=== PATIENT | female | born 1990 | race Caucasian/White ===

== ENCOUNTER 2016-10-04 08:29 | Inpatient (IN) | payer BC, OTHER ==
[2016-10-04 08:40] VITALS: TEMP 98.5
[2016-10-04 09:24] LABS: BASO # 0.01 K/mm3 (0.0-2.0); BASO % 0.2 % (0.0-3.0); EOS # 0.1 (0.0-0.7); GRAN # 3.66 (1.4-6.5); HEMOGLOBIN 11.3 gm/dL (12.0-16.0); LYMPH % 20.8 % (22.0-35.0); MEAN CELL VOLUME 88.6 fL (80.0-105.0); MEAN CORPUSCULAR HEMOGLOBIN 29.9 pg (25.0-35.0); MEAN CORPUSCULAR HGB CONC 33.7 g/dl (31.0-37.0); MEAN PLATELET VOLUME 10.1 fl (7.0-11.0); MONO # 0.2 (0.1-0.6); PLATELET COUNT 234 10^3/uL (120.0-450.0); RBC 3.78 10^6/uL (3.5-6.1); RED CELL DISTRIBUTION WIDTH 13.8 % (11.5-14.5)
--- NOTE | 2016-10-04 09:24 | ED PDOC ---
Arrival/HPI - General Chief Complaint: Seizure Time Seen by Provider: 10/04/16 08:42 Historian: Patient - History of Present Illness Narrative History of Present Illness (Text): 10/04/16 09:25 A 25 year old female, whose past medical history includes epilepsy (since 4 years old), presents to the emergency department complaining of headache s/p three episodes of seizures last night. Patient reports she is noncompliant with medications. States headache feels similar to previous headaches after seizure episode. Notes seizures became more frequent last year, about one episode every night, after being prescribed another medication. Prior to new medication, she states she wouldn't have seizures for years. Reports she had an episode 9 hours ago, which woke her up, causing her to fall off the bed, hitting leg and head. Patient's witnessed one seizure episode, which he states patient was awake for, lasted less than a minute and occurred about 5 hours ago. She notes some palpitations this morning, but denies any other complaints at this time. Medications: topamax Symptom Onset: Sudden Symptom Course: Unchanged Activities at Onset: Sleeping Context: Home Past Medical History - Provider Review Nursing Documentation Reviewed: Yes - Infectious Disease Hx of Infectious Diseases: None - Tetanus Immunization Tetanus Immunization: Unknown - Past Medical History Past Medical History: No Previous - Cardiac Hx Cardiac Disorders: No - Pulmonary Hx Respiratory Disorders: No - Neurological Hx Seizures: Yes Other/Comment: childhood epilepsy - HEENT Hx HEENT Disorder: No - Renal Hx Renal Disorder: No - Endocrine/Metabolic Hx Endocrine Disorders: No - Hematological/Oncological Hx Blood Disorders: No - Integumentary Hx Dermatological Disorder: No - Musculoskeletal/Rheumatological Hx Musculoskeletal Disorders: No - Gastrointestinal Hx Gastrointestinal Disorders: No - Genitourinary/Gynecological Hx Genitourinary Disorders: No - Psychiatric Hx Psychophysiologic Disorder: No Hx Substance Use: No - Past Surgical History Past Surgical History: No Previous - Anesthesia Hx Anesthesia: No Hx Anesthesia Reactions: No Hx Malignant Hyperthermia: No - Suicidal Assessment Feels Threatened In Home Enviroment: No Family/Social History - Physician Review Nursing Documentation Reviewed: Yes Family/Social History: No Known Family HX Smoking Status: Never Smoked Hx Alcohol Use: No Hx Substance Use: No Hx Substance Use Treatment: No Allergies/Home Meds Allergies/Adverse Reactions: Allergies No Known Allergies Allergy (Verified 10/04/16 08:40) Home Medications: Home Meds Medication Instructions Recorded Confirmed Topamax 100 mg PO BID 12/21/13 10/04/16 Review of Systems - Review of Systems Constitutional: Fatigue. absent: Fevers Eyes: absent: Vision Changes, Photophobia, Eye Pain ENT: absent: Hearing Changes, Sore Throat Respiratory: absent: SOB Cardiovascular: Palpitations. absent: Chest Pain, DAO, Orthopnea Gastrointestinal: absent: Abdominal Pain, Nausea, Vomiting Genitourinary Female: absent: Dysuria, Frequency Musculoskeletal: absent: Back Pain, Neck Pain Skin: absent: Rash Neurological: Headache, Seizure. absent: Gait Changes Endocrine: absent: Polyuria Hemo/Lymphatic: absent: Easy Bleeding Physical Exam - Physical Exam Narrative Physical Exam (Text): 10/04/16 09:24 Head: Mild pain on palpation of forehead but no bony deformity, no ecchymosis, no orbital tenderness. Normocephalic. Eyes: PERRL. EOMI. Conjunctivae are not pale. ENT: Mucous membranes are moist and intact. Oropharynx is clear and symmetric. No tongue laceration. No facial bony tenderness. No hemotympanum. Neck: Supple. Full ROM. No JVD. No lymphadenopathy. No midline tenderness. Cardiovascular: Regular rate. Regular rhythm. No murmurs, rubs, or gallops. Distal pulses are 2+ and symmetric. Pulmonary/Chest: No evidence of respiratory distress. Clear to auscultation bilaterally. No wheezing, rales or rhonchi. Nontender. Abdominal: Soft and non-distended. There is no tenderness. No rebound, guarding, or rigidity. No organomegaly. Good bowel sounds. Back: No CVA tenderness. No midline tenderness. Extremities: No edema. No cyanosis. No clubbing. Full range of motion in all extremities. No calf tenderness. Skin: Skin is warm and dry. No petechiae. No purpura. No lacerations or ecchymosis. Neurological: Alert, awake, and oriented to person, place, time, and situation. Normal speech. No facial droop. No pronator drift. Reflexes intact. No focal weakness. Cranial nerves intact. Psychiatric: Good eye contact. Normal interaction, affect, and behavior. Patient with "feeling like I might have a seizure again". Vital Signs Reviewed: Yes Vital Signs Temp Pulse Resp BP Pulse Ox 10/04/16 13:12 85 18 99/62 L 10/04/16 11:00 85 19 99/62 L 100 10/04/16 08:33 98.5 F 79 20 99/68 L 96 Temperature: Afebrile Blood Pressure: Hypotensive Pulse: Regular Respiratory Rate: Normal Appearance: Positive for: Well-Appearing, Non-Toxic, Comfortable Pain Distress: None Mental Status: Positive for: Alert and Oriented X 3 Finger Stick Blood Glucose: 105 Medical Decision Making ED Course and Treatment: 10/04/16 09:21 Impression: A 25 year old female with multiple seizures prior to arrival. She has prior history of seizures although several episodes in one day not typical for her. Not compliant with her medication.s Differential Diagnosis included but are not limited to: head injury r/o intracranial hemorrhage Plan: -- CT head -- labs -- Urinalysis -- Reassess and disposition Prior Visits: Notes and results from previous visits were reviewed. Patient last reported to the emergency department on 02/09/16 for evaluation of cough, nasal congestion and runny nose. Progress Notes: History supplemented by . Patient on initial exam is alert, oriented, with no focal motor or sensory deficits but states she still feels "off". She admits noncompliance with her Topamax. She did hit her head during first seizure today. On exam, there is tenderness to frontal scalp. Given head injury and multiple seizures, ct head ordered. 10/04/16 09:54 CT HEAD WITHOUT CONTRAST Creator : Bigg Wayne MD IMPRESSION: No intracranial mass, hemorrhage or evidence of acute infarct. Unremarkable examination 10/04/16 14:20 While in emergency department, patient has had persistent auras sensation as if going to have seizure, although none has occurred. I suspect etiology of current presentation associated with her medication noncompliance. Oral Ativan ordered for persistent "aura" sensation. Patient symptoms are not improved after PO Ativan. Due to multiple seizures prior to arrival and persistent sensation of auras, patient will be admitted to remote tele bed for neurological monitoring. I consulted deboning team leader neurologist Dr. Yu. Patient will be initiated on IV Keppra and oral Topamax. Admission accepted by hospitalist. With period of monitoring in ED, she has not had further seizures in ED, no arrhythmias noted. - Lab Interpretations Lab Results: 10/04/16 09:18 10/04/16 09:43 Lab Results 10/04/16 10:00: Alcohol, Quantitative < 10 10/04/16 09:43: Sodium 138, Potassium 4.4, Chloride 105, Carbon Dioxide 25, Anion Gap 12, BUN 13, Creatinine 0.6, Est GFR ( Amer) > 60, Est GFR (Non- Af Amer) > 60, Random Glucose 93, Calcium 8.9, Total Bilirubin 0.3, AST 22, ALT 25, Alkaline Phosphatase 64, Total Protein 7.1, Albumin 3.9, Globulin 3.2, Albumin/Globulin Ratio 1.2 10/04/16 09:18: Urine Color Yellow, Urine Appearance Clear, Urine pH 6.0, Ur Specific [place] 1.025, Urine Protein Negative, Urine Glucose (UA) Negative, Urine Ketones Negative, Urine Blood Negative, Urine Nitrate Positive H, Urine Bilirubin Negative, Urine Urobilinogen 0.2, Ur Leukocyte Esterase Negative, Urine RBC 0 - 2, Urine WBC Negative, Ur Epithelial Cells 1 - 3, Urine HCG, Qual Negative 10/04/16 09:18: WBC 5.0 D, RBC 3.78, Hgb 11.3 L, Hct 33.5 L, MCV 88.6, MCH 29.9 , MCHC 33.7, RDW 13.8, Plt Count 234, MPV 10.1, Gran % 74.0 H, Lymph % (Auto) 20.8 L, [place] % (Auto) 4.0, Eos % (Auto) 1.0 L, Baso % (Auto) 0.2, Gran # 3.66, Lymph # 1.0 L, [place] # 0.2, Eos # 0.1, Baso # 0.01 10/04/16 08:49: POC Glucose (mg/dL) 105 I have reviewed the lab results: Yes - RAD Interpretation Radiology Orders: 10/04/16 09:06 HEAD W/O CONTRAST [CT] Stat - EKG Interpretation EKG Interpretation (Text): 10/04/16 EKG at 13:33 normal sinus rhythm rate of [address] elevations Interpreted by ED Physician: Yes Type: 12 lead EKG - Medication Orders Current Medication Orders: Acetaminophen (Tylenol 325mg Tab) 650 mg PO Q6H PRN PRN Reason: Fever >100.4 F Levetiracetam 1,000 mg/ Sodium (Chloride) 110 mls @ 460 mls/hr IV Q12 REX Lorazepam (Ativan) 1 mg IVP Q3 PRN; Protocol PRN Reason: Anxiety Non-Formulary Medication (Topamax) 100 mg PO BID REX Ondansetron HCl (Zofran Inj) 4 mg IVP Q4H PRN PRN Reason: Nausea/Vomiting Discontinued Medications Levetiracetam 1,000 mg/ Sodium (Chloride) 110 mls @ 440 mls/hr IV ONCE ONE Stop: 10/04/16 12:27 Last Admin: 10/04/16 12:54 Dose: 440 mls/hr Lorazepam (Ativan) 1 mg PO ONCE ONE PRN Reason: Protocol Stop: 10/04/16 11:18 Last Admin: 10/04/16 11:27 Dose: 1 mg Topiramate (Topamax) 50 mg PO STAT STA PRN Reason: Protocol Stop: 10/04/16 12:13 Last Admin: 10/04/16 13:16 Dose: 50 mg - Scribe Statement The provider has reviewed the documentation as recorded by the Jac Fuentes Provider Scribe Attestation: All medical record entries made by the Jac were at my direction and personally dictated by me. I have reviewed the chart and agree that the record accurately reflects my personal performance of the history, physical exam, medical decision making, and the department course for this patient. I have also personally directed, reviewed, and agree with the discharge instructions and disposition. Disposition/Present on Arrival - Present on Arrival Any Indicators Present on Arrival: No History of DVT/PE: No History of Uncontrolled Diabetes: No Urinary Catheter: No History of Decub. Ulcer: No History Surgical Site Infection Following: None - Disposition Have Diagnosis and Disposition been Completed?: Yes Diagnosis: Seizures Disposition: HOSPITALIZED Disposition Time: 10:45 Patient Plan: Admission, Telemetry Condition: FAIR
[2016-10-04 09:26] LABS: URINE BILIRUBIN NEGATIVE (NEGATIVE); URINE BLOOD NEGATIVE (NEGATIVE); URINE GLUCOSE (UA) NEGATIVE (NEGATIVE); URINE LEUKOCYTE ESTERASE NEGATIVE Leu/uL (NEGATIVE); URINE NITRATE POSITIVE (NEGATIVE); URINE PROTEIN NEGATIVE mg/dL (<30 mg/dL); URINE UROBILINOGEN 0.2 E.U./dL (<1 E.U./dL)
[2016-10-04 09:37] LABS: HCG,QUALITATIVE URINE NEGATIVE (NEGATIVE); URINE APPEARANCE CLEAR (CLEAR); URINE COLOR YELLOW (YELLOW)
[2016-10-04 09:38] LABS: URINE RBC 0 - 2 /hpf (0-2); URINE WBC NEGATIVE /hpf (0-6)
--- NOTE | 2016-10-04 09:52 | CT ---
PROCEDURE: CT HEAD WITHOUT CONTRAST. HISTORY: head injury, 3 seizures today COMPARISON: None available. TECHNIQUE: Axial computed tomography images were obtained through the head/brain without intravenous contrast. Radiation dose: Total exam DLP = 725.84 mGy-cm. This CT exam was performed using one or more of the following dose reduction techniques: Automated exposure control, adjustment of the mA and/or kV according to patient size, and/or use of iterative reconstruction technique. FINDINGS: HEMORRHAGE: No intracranial hemorrhage. BRAIN: No mass effect or edema. No atrophy or chronic microvascular ischemic changes. VENTRICLES: Unremarkable. No hydrocephalus. CALVARIUM: Unremarkable. PARANASAL SINUSES: Unremarkable as visualized. No significant inflammatory changes. MASTOID AIR CELLS: Unremarkable as visualized. No inflammatory changes. OTHER FINDINGS: None. IMPRESSION: No intracranial mass, hemorrhage or evidence of acute infarct. Unremarkable examination
[2016-10-04 09:58] LABS: ALB/GLOB RATIO 1.2 (1.1-1.8); ALBUMIN 3.9 g/dL (3.0-4.8); ALT/SGPT 25 U/L (7-56); AST/SGOT 22 U/L (15-39); BLOOD UREA NITROGEN 13 mg/dL (7-21); CALCIUM 8.9 mg/dL (8.4-10.5); GFR AFRICAN-AMERICAN > 60; GFR NON-AFRICAN AMERICAN > 60
[2016-10-04] MEDS ORDERED: levETIRAcetam 1,000 MG in Sodium Chloride 0.9% 100 ML IV ONE (12:13)
[2016-10-04 13:18] VITALS: BMI 32.8
--- NOTE | 2016-10-04 15:07 | CP.PCM.HP ---
<SAMANTHA BRICENO - Last Filed: 10/04/16 16:00> History of Present Illness - History of Present Illness History of Present Illness: CC: Seizures HPI: Mrs. Hodges is a 25 year old female with a past medical history significant for epilepsy and migraines presented with seizures. Patient reports that she has had two seizures today. One, which was unwitnessed, woke her up from her sleep and she then fell out of bed and hit her head. Her other reported seizure was witnessed by her , who was bedside with patient, a few hours later. He states that it lasted about a minute and consisted of her "thrashing her arms and legs around until she stopped". He reports that he gave her no medication during or after the episode. Patient states that there was a period of confusion and "fogginess" afterwards before she slowly regained orientation which took about 30 minutes. She reports that she was diagnosed with epilepsy as a child and has been on anti-seizure medications her "entire life". She claims that she hadn't experienced seizure activity for "5-6 years" on only Topamax before she started to experience a significant increase in the number of seizures she was having. She went to her neurologist at the time, Dr. Moore in [facility], who started her on Lamictal around "2-3 months ago". Patient claims that this medication caused her to have an even more significant increase in the number of seizures she was experiencing. She eventually stopped taking this medication "about 1 month ago" with a slight decrease in seizure activity since then. Currently, she complains of a migraine and an "aura" but otherwise has no complaints. She denies fever, shortness of breath, chest pain, abdominal pain, N /V, diarrhea or edema of any extremity. Past Medical History: Epilepsy and Migraines Past Surgical History: None Family History: Mother-"Thyroid Problems" Social History: Denies tobacco use, alcohol use and illicit drug use at any point in her life Home Medications: Topamax and PRN Aleve (Migraines) Present on Admission - Present on Admission Any Indicators Present on Admission: No Review of Systems - Review of Systems Review of Systems: Please refer to HPI Past Patient History - Infectious Disease Hx of Infectious Diseases: None - Tetanus Immunizations Tetanus Immunization: Unknown - Past Medical History & Family History Past Medical History?: Yes - Past Social History Smoking Status: Never Smoked Alcohol: None Drugs: Denies Home Situation {Lives}: With Family - CARDIAC Hx Cardiac Disorders: No - PULMONARY Hx Respiratory Disorders: No - NEUROLOGICAL Hx Seizures: Yes Other/Comment: childhood epilepsy - HEENT Hx HEENT Problems: No - RENAL Hx Chronic Kidney Disease: No - ENDOCRINE/METABOLIC Hx Endocrine Disorders: No - HEMATOLOGICAL/ONCOLOGICAL Hx Blood Disorders: No - INTEGUMENTARY Hx Dermatological Problems: No - MUSCULOSKELETAL/RHEUMATOLOGICAL Hx Musculoskeletal Disorders: No - GASTROINTESTINAL Hx Gastrointestinal Disorders: No - GENITOURINARY/GYNECOLOGICAL Hx Genitourinary Disorders: No - PSYCHIATRIC Hx Psychophysiologic Disorder: No Hx Substance Use: No - SURGICAL HISTORY Hx Surgeries: No - ANESTHESIA Hx Anesthesia: No Hx Anesthesia Reactions: No Hx Malignant Hyperthermia: No Meds Allergies/Adverse Reactions: Allergies Allergy/AdvReac Type Severity Reaction Status Date / Time No Known Allergies Allergy Verified 10/04/16 08:40 Physical Exam - Constitutional Appears: No Acute Distress - Head Exam Head Exam: NORMAL INSPECTION, NORMOCEPHALIC - Eye Exam Eye Exam: EOMI, Normal appearance, PERRL Pupil Exam: NORMAL ACCOMODATION, PERRL - ENT Exam ENT Exam: Mucous Membranes Moist, Normal Exam - Neck Exam Neck exam: Positive for: Full Rom, Normal Inspection. Negative for: Lymphadenopathy - Respiratory Exam Respiratory Exam: Clear to Auscultation Bilateral, NORMAL BREATHING PATTERN. absent: Rales, Rhonchi, Wheezes, Respiratory Distress, Stridor - Cardiovascular Exam Cardiovascular Exam: REGULAR RHYTHM, RRR, +S1, +S2. absent: Bradycardia, Tachycardia, Systolic Murmur - GI/Abdominal Exam GI & Abdominal Exam: Normal Bowel Sounds, Soft. absent: Distended, Firm, Guarding, Hernia, Tenderness - Extremities Exam Extremities exam: Positive for: normal capillary refill, normal inspection, pedal pulses present. Negative for: calf tenderness, joint swelling, pedal edema - Back Exam Back exam: NORMAL INSPECTION. absent: CVA tenderness (L), CVA tenderness (R), paraspinal tenderness, tenderness, vertebral tenderness - Neurological Exam Neurological exam: Alert, Oriented x3 - Psychiatric Exam Psychiatric exam: Normal Affect, Normal Mood - Skin Skin Exam: Dry, Intact, Normal Color, Warm Results - Vital Signs Recent Vital Signs: Last Vital Signs Temp 98.5 F 10/04/16 08:33 Pulse 85 10/04/16 13:12 Resp 18 10/04/16 13:12 BP 99/62 L 10/04/16 13:12 Pulse Ox 100 10/04/16 11:00 - Labs Result Diagrams: 10/04/16 09:18 10/04/16 09:43 Assessment & Plan - Assessment and Plan (Free Text) Assessment: Mrs. Hodges is a 25 year old female with a past medical history significant for epilepsy and migraines presented with seizures. Plan: 1. History of Epilepsy with active seizures - consulted neurology, all recommendations appreciated - CT head negative for intracranial mass, hemorrhage or acute infarct - Topamax 50mg, Ativan 1mg and Keppra 1000mg given once in ED - start topamax 100mg BID and Keppra 1000mg Q12, per neurology - Ativan 1mg PRN - seizure, fall and aspiration precautions in place 2. Migraines - neurology following - tylenol and zofran PRN 3. GI/DVT Prophylaxis - Pepcid/scd's Patient seen and case discussed in detail with attending, Dr. Zelaya. - Date & Time Date: 10/04/16 Time: 13:00 Decision To Admit - . Bed Request Type: Remote Telemetry <Otilia Zelaya - Last Filed: 10/04/16 16:19> Results - Vital Signs Recent Vital Signs: Last Vital Signs Temp 98.5 F 10/04/16 08:33 Pulse 86 10/04/16 15:35 Resp 18 10/04/16 15:35 BP 112/72 10/04/16 15:35 Pulse Ox 96 10/04/16 15:35 - Labs Result Diagrams: 10/04/16 09:18 10/04/16 09:43 Attending/Attestation - Attestation I have personally seen and examined this patient.: Yes I have fully participated in the care of the patient.: Yes I have reviewed all pertinent clinical information: Yes Notes (Text): 10/04/16 16:17 attending note; Patient seen And examined with resident in ER. Patient's by the bedside. Patient is a 25-year-old female with a history of seizure disorder since childhood is admitted with recurrence seizures since last night. Currently patient is alert, awake. CT head is negative. Patient is only taking Topamax now. stopped Lamictal. Stopped Keppra. Started on IV Keppra. Continue by mouth Topamax. IV Ativan prn. Neurology evaluation requested. Patient needs close follow-up with neurologist as outpatient for medication adjustment. Patient is strongly advised not to drive. Upon discharge the patient will follow up with PMD of choice.
[2016-10-04 16:59] VITALS: BP 103/71; RESP 19; O2SAT 98
[2016-10-04] MEDS ORDERED: TOPAMAX 100 MG PO SCH (18:00)
[2016-10-04] MEDS: levETIRAcetam 1,000 MG in Sodium Chloride 0.9% 100 ML IV SCH (21:42)
[2016-10-05 06:27] VITALS: PULSE 66
[2016-10-05 07:52] LABS: BASO # 0.02 K/mm3 (0.0-2.0); BASO % 0.4 % (0.0-3.0); EOS # 0.1 (0.0-0.7); EOS % 1.7 % (1.5-5.0); GRAN % 65.2 % (50.0-68.0); HEMOGLOBIN 11.8 gm/dL (12.0-16.0); LYMPH # 1.2 (1.2-3.4); LYMPH % 25.8 % (22.0-35.0); MEAN CORPUSCULAR HEMOGLOBIN 29.4 pg (25.0-35.0); MEAN CORPUSCULAR HGB CONC 33.4 g/dl (31.0-37.0); MEAN PLATELET VOLUME 9.6 fl (7.0-11.0); MONO # 0.3 (0.1-0.6); MONO % 6.9 % (1.0-6.0); PLATELET COUNT 228 10^3/uL (120.0-450.0); RBC 4.01 10^6/uL (3.5-6.1); RED CELL DISTRIBUTION WIDTH 13.2 % (11.5-14.5); WHITE BLOOD COUNT 4.6 10^3/ul (4.5-11.0)
[2016-10-05 08:10] LABS: ALB/GLOB RATIO 1.3 (1.1-1.8); ALBUMIN 4.2 g/dL (3.0-4.8); ALT/SGPT 30 U/L (7-56); AST/SGOT 27 U/L (15-39); BLOOD UREA NITROGEN 12 mg/dL (7-21); CALCIUM 9.2 mg/dL (8.4-10.5); GFR AFRICAN-AMERICAN > 60; GFR NON-AFRICAN AMERICAN > 60
[2016-10-05] MEDS: levETIRAcetam 1,000 MG in Sodium Chloride 0.9% 100 ML IV SCH (10:57)
--- NOTE | 2016-10-05 18:59 | CP.PCM.DIS ---
Provider - Provider Date of Admission: 10/04/16 12:07 Attending physician: Otilia Zelaya MD Time Spent in preparation of Discharge (in minutes): 45 Diagnosis - Discharge Diagnosis (1) Seizure Status: Acute Priority: Medium Onset Date: ~10/04/16 Hospital Course - Lab Results Lab Results: Most Recent Lab Values WBC 4.6 10^3/ul (4.5-11.0) 10/05/16 07:30 RBC 4.01 10^6/uL (3.5-6.1) 10/05/16 07:30 Hgb 11.8 gm/dL (12.0-16.0) L 10/05/16 07:30 Hct 35.3 % (36.0-48.0) L 10/05/16 07:30 MCV 88.0 fL (80.0-105.0) 10/05/16 07:30 MCH 29.4 pg (25.0-35.0) 10/05/16 07:30 MCHC 33.4 g/dl (31.0-37.0) 10/05/16 07:30 RDW 13.2 % (11.5-14.5) 10/05/16 07:30 Plt Count 228 10^3/uL (120.0-450.0) 10/05/16 07:30 MPV 9.6 fl (7.0-11.0) 10/05/16 07:30 Gran % 65.2 % (50.0-68.0) 10/05/16 07:30 Lymph % (Auto) 25.8 % (22.0-35.0) 10/05/16 07:30 [place] % (Auto) 6.9 % (1.0-6.0) H 10/05/16 07:30 Eos % (Auto) 1.7 % (1.5-5.0) 10/05/16 07:30 Baso % (Auto) 0.4 % (0.0-3.0) 10/05/16 07:30 Gran # 3.00 (1.4-6.5) 10/05/16 07:30 Lymph # 1.2 (1.2-3.4) 10/05/16 07:30 [place] # 0.3 (0.1-0.6) 10/05/16 07:30 Eos # 0.1 (0.0-0.7) 10/05/16 07:30 Baso # 0.02 K/mm3 (0.0-2.0) 10/05/16 07:30 Sodium 137 mmol/L (132-148) 10/05/16 07:30 Potassium 3.9 mmol/L (3.6-5.0) 10/05/16 07:30 Chloride 103 mmol/L (95-110) 10/05/16 07:30 Carbon Dioxide 25 mmol/L (21-33) 10/05/16 07:30 Anion Gap 13 (10-20) 10/05/16 07:30 BUN 12 mg/dL (7-21) 10/05/16 07:30 Creatinine 0.9 mg/dL (0.5-1.4) 10/05/16 07:30 Est GFR ( Amer) > 60 10/05/16 07:30 Est GFR (Non-Af Amer) > 60 10/05/16 07:30 POC Glucose (mg/dL) 105 mg/dL (65-110) 10/04/16 08:49 Random Glucose 85 mg/dL (70-110) 10/05/16 07:30 Calcium 9.2 mg/dL (8.4-10.5) 10/05/16 07:30 Phosphorus 3.4 mg/dL (2.5-4.5) 10/04/16 10:00 Magnesium 2.0 mg/dL (1.7-2.2) 10/04/16 10:00 Total Bilirubin 0.5 mg/dL (0.2-1.3) 10/05/16 07:30 AST 27 U/L (15-39) 10/05/16 07:30 ALT 30 U/L (7-56) 10/05/16 07:30 Alkaline Phosphatase 74 U/L (38-133) 10/05/16 07:30 Total Protein 7.5 g/dL (5.8-8.3) 10/05/16 07:30 Albumin 4.2 g/dL (3.0-4.8) 10/05/16 07:30 Globulin 3.3 gm/dL 10/05/16 07:30 Albumin/Globulin Ratio 1.3 (1.1-1.8) 10/05/16 07:30 Urine Color Yellow (YELLOW) 10/04/16 09:18 Urine Appearance Clear (CLEAR) 10/04/16 09:18 Urine pH 6.0 (4.7-8.0) 10/04/16 09:18 Ur Specific [place] 1.025 (1.005-1.035) 10/04/16 09:18 Urine Protein Negative mg/dL (<30 mg/dL) 10/04/16 09:18 Urine Glucose (UA) Negative mg/dL (NEGATIVE) 10/04/16 09:18 Urine Ketones Negative mg/dL (NEGATIVE) 10/04/16 09:18 Urine Blood Negative (NEGATIVE) 10/04/16 09:18 Urine Nitrate Positive (NEGATIVE) H 10/04/16 09:18 Urine Bilirubin Negative (NEGATIVE) 10/04/16 09:18 Urine Urobilinogen 0.2 E.U./dL (<1 E.U./dL) 10/04/16 09:18 Ur Leukocyte Esterase Negative [place]/uL (NEGATIVE) 10/04/16 09:18 Urine RBC 0 - 2 /hpf (0-2) 10/04/16 09:18 Urine WBC Negative /hpf (0-6) 10/04/16 09:18 Ur Epithelial Cells 1 - 3 /hpf (0-5) 10/04/16 09:18 Urine HCG, Qual Negative (NEGATIVE) 10/04/16 09:18 Alcohol, Quantitative < 10 mg/dL (0-10) 10/04/16 10:00 - Hospital Course Hospital Course: Mrs. Hodges is a 25 year old female with a past medical history significant for epilepsy and migraines presented with seizures. Patient reports that she had two seizures on 10/04. One, which was unwitnessed, woke her up from her sleep and she then fell out of bed and hit her head. Her other reported seizure was witnessed by her , who was bedside with patient, a few hours later. He stated that it lasted about a minute and consisted of her "thrashing her arms and legs around until she stopped". He reported that he gave her no medication during or after the episode. Patient stated that there was a period of confusion and "fogginess" afterwards before she slowly regained orientation which took about 30 minutes. She reported that she was diagnosed with epilepsy as a child and has been on anti-seizure medications her "entire life". She claimed that she hadn't experienced seizure activity for "5-6 years" on only Topamax before she started to experience a significant increase in the number of seizures she was having. She went to her neurologist at the time, Dr. Moore in [facility], who started her on Lamictal around "2-3 months ago". Patient claims that this medication caused her to have an even more significant increase in the number of seizures she was experiencing. She eventually stopped taking this medication "about 1 month ago." Approximately two weeks later (and two weeks before this admission), patient began having nightly seizures. Patient stated that she had an EEG outpatient two weeks before she was admitted to the hospital. Patient was unaware of her results. The neurology team recommended Keppra for her in addition to hr Topamax, and cleared her for d/c. Patient was advised to f/u closely with Dr. Perez outpatient, and was further instructed NOT to drive or operate heavy machinery. A report was filed with the [facility] by Dr. Chato Mtz to notify them of this medical report. Pt was d/c with Keppra and Topamax - Date & Time of H&P Date of H&P: 10/04/16 Time of H&P: 14:50 Discharge Exam - Head Exam Head Exam: NORMAL INSPECTION, NORMOCEPHALIC - Eye Exam Eye Exam: EOMI, Normal appearance, PERRL Pupil Exam: NORMAL ACCOMODATION - ENT Exam ENT Exam: Mucous Membranes Moist - Neck Exam Neck exam: Full Rom - Respiratory Exam Respiratory Exam: Clear to PA & Lateral, NORMAL BREATHING PATTERN, UNREMARKABLE - Cardiovascular Exam Cardiovascular Exam: REGULAR RHYTHM - GI/Abdominal Exam GI & Abdominal Exam: Normal Bowel Sounds, Unremarkable - Rectal Exam Rectal Exam: NORMAL INSPECTION - Extremities Exam Extremities exam: full ROM - Back Exam Back exam: FULL ROM - Neurological Exam Neurological exam: Alert, CN II-XII Intact, Normal Gait, Oriented x3, Reflexes Normal - Psychiatric Exam Psychiatric exam: Normal Affect, Normal Mood - Skin Skin Exam: Dry, Intact, Normal Color Discharge Plan - Discharge Medications Prescriptions: levETIRAcetam [Keppra] 500 mg PO BID #60 tab Topiramate [Topamax] 100 mg PO BID #60 tab - Follow Up Plan Condition: FAIR Disposition: HOME/ ROUTINE Instructions: Women and Epilepsy (GEN) Additional Instructions: Do not drive under any circumstances or operate any heavy machinery. Please take your Keppra and Topamax as prescribed and make sure not to miss any doses. Please follow up with Dr. Jay Perez within one week - [phone] If symptoms persist, please return to the ED [facility].
--- NOTE | 2016-10-05 21:18 | CARD ---
APPROVED REPORT EKG Measurement Heart [id number] <Conclusion> Poor data quality, interpretation may be adversely affected Normal sinus rhythm Normal ECG
== END 2016-10-05 15:57 | disposition home or self-care (01) | DRG 101 ==
LOC: ED 08:29 → ERH 12:07 → 3RSO 15:55
PROVIDERS: ADMIT Internal Medicine; ATTEND Internal Medicine
DX: G40.909 Epilepsy, unspecified, not intractable, without status epilepticus (principal); G43.909 Migraine, unspecified, not intractable, without status migrainosus; W06.XXXA Fall from bed, initial encounter; Z91.14 Patient's other noncompliance with medication regimen

== ENCOUNTER 2016-11-09 04:31 | Observation (INO) | payer BC ==
--- NOTE | 2016-11-09 04:45 | ED PDOC ---
Arrival/HPI - General Chief Complaint: Seizure Time Seen by Provider: 11/09/16 04:35 Historian: Patient - History of Present Illness Narrative History of Present Illness (Text): 11/09/16 04:45 Haley Hodges is a 25 year old female, whose past medical history includes epilepsy, who presents to the Emergency department complaining of seizures. Patient states she had a seizure today prior to arrival and notes her last seizures was yesterday evening. Patient states she had multiple auras throughout the day which she experiences prior to having a seizure. Patient states she had been compliant with her Keppra and Topomax. Patient denies any chest pain, shortness of breath, nausea, vomiting, diarrhea, urinary symptoms, back pain, neck pain, dizziness, or any other complaints. Time/Duration: Other (today) Symptom Onset: Gradual Symptom Course: Unchanged Activities at Onset: Light Context: Home Past Medical History - Provider Review Nursing Documentation Reviewed: Yes - Infectious Disease Hx of Infectious Diseases: None - Tetanus Immunization Tetanus Immunization: Unknown - Past Medical History Past Medical History: No Previous - Cardiac Hx Cardiac Disorders: No - Pulmonary Hx Respiratory Disorders: No - Neurological Hx Seizures: Yes Other/Comment: childhood epilepsy - HEENT Hx HEENT Disorder: No - Renal Hx Renal Disorder: No - Endocrine/Metabolic Hx Endocrine Disorders: No - Hematological/Oncological Hx Blood Disorders: No - Integumentary Hx Dermatological Disorder: No - Musculoskeletal/Rheumatological Hx Musculoskeletal Disorders: No - Gastrointestinal Hx Gastrointestinal Disorders: No - Genitourinary/Gynecological Hx Genitourinary Disorders: No - Psychiatric Hx Psychophysiologic Disorder: No Hx Substance Use: No - Past Surgical History Past Surgical History: No Previous - Anesthesia Hx Anesthesia: No Hx Anesthesia Reactions: No Hx Malignant Hyperthermia: No - Suicidal Assessment Feels Threatened In Home Enviroment: No Family/Social History - Physician Review Nursing Documentation Reviewed: Yes Family/Social History: Unknown Family HX Smoking Status: Never Smoked Hx Alcohol Use: No Hx Substance Use: No Hx Substance Use Treatment: No Allergies/Home Meds Allergies/Adverse Reactions: Allergies No Known Allergies Allergy (Verified 11/09/16 04:37) Review of Systems - Physician Review All systems were reviewed & negative as marked: Yes - Review of Systems Constitutional: Normal. absent: Fevers Eyes: Normal ENT: Normal Respiratory: Normal. absent: SOB, Cough Cardiovascular: Normal. absent: Chest Pain Gastrointestinal: Normal. absent: Abdominal Pain, Diarrhea, Nausea, Vomiting Genitourinary Female: Normal. absent: Dysuria, Frequency, Hematuria, Urine Output Changes Musculoskeletal: Normal. absent: Back Pain, Neck Pain Skin: Normal. absent: Rash Neurological: Seizure. absent: Headache, Dizziness Endocrine: Normal Hemo/Lymphatic: Normal Psychiatric: Normal Physical Exam Vital Signs Reviewed: Yes Vital Signs Temp Pulse Resp BP Pulse Ox 11/09/16 04:36 97.7 F 83 20 111/78 99 Temperature: Afebrile Blood Pressure: Normal Pulse: Regular Respiratory Rate: Normal Appearance: Positive for: Well-Appearing, Non-Toxic, Comfortable Pain Distress: None Mental Status: Positive for: Alert and Oriented X 3 - Systems Exam Head: Present: Atraumatic, Normocephalic Pupils: Present: PERRL Extroacular Muscles: Present: EOMI Conjunctiva: Present: Normal Ears: Present: NORMAL TM Mouth: Present: Moist Mucous Membranes Pharnyx: Present: Normal Neck: Present: Normal Range of Motion. No: Meningeal Signs Respiratory/Chest: Present: Clear to Auscultation, Good Air Exchange. No: Respiratory Distress, Accessory Muscle Use Cardiovascular: Present: Regular Rate and Rhythm, Normal S1, S2. No: Murmurs Abdomen: Present: Normal Bowel Sounds. No: Tenderness, Distention, Peritoneal Signs Upper Extremity: Present: Normal Inspection. No: Cyanosis, Edema Lower Extremity: Present: Normal Inspection. No: Edema Neurological: Present: GCS=15, CN II-XII Intact, Speech Normal, Motor Func Grossly Intact, Normal Sensory Function Skin: Present: Warm, Dry, Normal Color. No: Rashes Psychiatric: Present: Alert, Oriented x 3, Normal Insight, Normal Concentration Medical Decision Making ED Course and Treatment: 11/09/16 04:45 Impression: 25 year old female complaining of seizures. Plan: -- EKG -- Labs -- Urine drug screen -- Reassess and disposition Prior Visits: Notes and results from previous visits were reviewed. On 10/04/2016, pt was seen in the Emergency department for headache and multiple seizures. Pt as admitted to the hospital for further evaluation. Progress Notes: 11/09/16 05:30 Case discussed with healthcare or medical coordinator of evaluation, who is aware and agrees with plan. 11/09/16 05:[address] Shearer, who is aware and agrees with plan. Accepts pt in to hospitalist service. Pt will go to remote telemetry observation for recurrent seizures. Pt is no acute distress. Discussed hospital observation plan with pt, who is aware and verbalizes understanding. 11/09/16 05:41 Reviewed EKG, NSR at [address]-segment elevations or depressions, no T-wave inversions, normal intervals. - Lab Interpretations Lab Results: 11/09/16 04:41 11/09/16 04:41 Lab Results 11/09/16 05:00: Urine Opiates Screen Negative, Urine Methadone Screen Negative, Ur Barbiturates Screen Negative, Ur Phencyclidine Scrn Negative, Ur Amphetamines Screen Negative, U Benzodiazepines Scrn Negative, U Oth Cocaine Metabols Negative, U Cannabinoids Screen Negative 11/09/16 04:41: WBC 4.5, RBC 4.10, Hgb 12.4, Hct 35.4 L, MCV 86.3, MCH 30.2, MCHC 35.0, RDW 13.1, Plt Count 222, MPV 10.0 11/09/16 04:41: Sodium 142, Potassium 3.6, Chloride 110 H, Carbon Dioxide 21, Anion Gap 15, BUN 15, Creatinine 0.9, Est GFR ( Amer) > 60, Est GFR (Non- Af Amer) > 60, Random Glucose 99, Calcium 9.0, Total Bilirubin 0.3, AST 22, ALT 23, Alkaline Phosphatase 72, Total Protein 7.4, Albumin 4.2, Globulin 3.3, Albumin/Globulin Ratio 1.3 I have reviewed the lab results: Yes - Medication Orders Current Medication Orders: Levetiracetam 1,000 mg/ Sodium (Chloride) 110 mls @ 460 mls/hr IV DAILY REX Topiramate (Topamax) 100 mg PO BID REX PRN Reason: Protocol Discontinued Medications Heparin Sodium (Porcine) (Heparin) 5,000 units SC STAT STA PRN Reason: Protocol Stop: 11/09/16 06:15 - Scribe Statement The provider has reviewed the documentation as recorded by the Josephibalbaro Ellis Provider Scribe Attestation: All medical record entries made by the Scribe were at my direction and personally dictated by me. I have reviewed the chart and agree that the record accurately reflects my personal performance of the history, physical exam, medical decision making, and the department course for this patient. I have also personally directed, reviewed, and agree with the discharge instructions and disposition. Disposition/Present on Arrival - Present on Arrival Any Indicators Present on Arrival: No History of DVT/PE: No History of Uncontrolled Diabetes: No Urinary Catheter: No History of Decub. Ulcer: No History Surgical Site Infection Following: None - Disposition Have Diagnosis and Disposition been Completed?: Yes Diagnosis: Recurrent seizures Disposition: HOSPITALIZED Disposition Time: 05:37 Patient Plan: Observation Patient Problems: Current Active Problems Problem Status Onset Recurrent seizures Acute Condition: STABLE
[2016-11-09 05:12] LABS: HEMATOCRIT 35.4 % (36.0-48.0); MEAN CELL VOLUME 86.3 fl (80.0-105.0); MEAN CORPUSCULAR HEMOGLOBIN 30.2 pg (25.0-35.0); RED CELL DISTRIBUTION WIDTH 13.1 % (11.5-14.5); WHITE BLOOD COUNT 4.5 10^3/ul (4.5-11.0)
[2016-11-09 05:18] LABS: ALB/GLOB RATIO 1.3 (1.1-1.8); ALKALINE PHOSPHATASE 72 U/L (38-133); ALT/SGPT 23 U/L (7-56); AST/SGOT 22 U/L (15-39); BILIRUBIN,TOTAL 0.3 mg/dL (0.2-1.3); BLOOD UREA NITROGEN 15 mg/dL (7-21); CARBON DIOXIDE 21 mmol/L (21-33); CHLORIDE 110 mmol/L (98-107); GFR AFRICAN-AMERICAN > 60; GLUCOSE,RANDOM 99 mg/dL (70-110); POTASSIUM 3.6 mmol/L (3.6-5.0); SODIUM 142 mmol/L (132-148); TOTAL PROTEIN 7.4 g/dL (5.8-8.3)
--- NOTE | 2016-11-09 06:29 | CP.PCM.HP ---
<AIMEE UNGER - Last Filed: 11/09/16 08:58> History of Present Illness - History of Present Illness History of Present Illness: Ms. Hodges is a 25yo F with PMH epilepsy presents to ED with more frequent episodes of seizures, the last being 15 mins before ED visit. Pt was recently discharged from [facility] for the same complaints and couldn't f/u Dr. Perez due to scheduling issues. Pt states that she has had seizures since she was 5 and was on medications and had no episodes, even being off medications for her late teens and not having any episodes of seizures. Pt states that for the past few months, she has been having them more frequently and states that she has been experiencing them nightly for the past couple weeks. States that she feels an aura before the seizures and characterizes it as a numbness/tingling in the R side of her body. Also complains of nausea and chills, but denies fevers, vomiting, diarrhea, chest pain, abdominal pain, or urinary changes. Pt f/u with Dr. Moore (Neurologist). 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 Moore Present on Admission - Present on Admission Any Indicators Present on Admission: No History of DVT/PE: No History of Uncontrolled Diabetes: No Review of Systems - Constitutional Constitutional: absent: Fatigue, Fever, Headache, Weakness - EENT Eyes: absent: Blurred Vision, Change in Vision Nose/Mouth/Throat: absent: Nasal Congestion - Cardiovascular Cardiovascular: absent: Chest Pain, Dyspnea, Leg Edema, Lightheadedness - Respiratory Respiratory: absent: Cough, Chest Congestion - Gastrointestinal Gastrointestinal: absent: Abdominal Pain, Diarrhea - Genitourinary Genitourinary: absent: Change in Urinary Stream, Difficulty Urinating, Hematuria - Musculoskeletal Musculoskeletal: Numbness, Tingling. absent: Muscle Weakness Additional comments: pt states that she has a baseline of numbness/tingling that she has gotten used to - Neurological Neurological: Convulsions. absent: Confusion, Focal Weakness, Tremor Past Patient History - Infectious Disease Hx of Infectious Diseases: None - Tetanus Immunizations Tetanus Immunization: Unknown - Past Medical History & Family History Past Medical History?: Yes - Past Social History Smoking Status: Never Smoked Alcohol: None Drugs: Denies Home Situation {Lives}: With Family - CARDIAC Hx Cardiac Disorders: No - PULMONARY Hx Respiratory Disorders: No - NEUROLOGICAL Hx Seizures: Yes Other/Comment: childhood epilepsy - HEENT Hx HEENT Problems: No - RENAL Hx Chronic Kidney Disease: No - ENDOCRINE/METABOLIC Hx Endocrine Disorders: No - HEMATOLOGICAL/ONCOLOGICAL Hx Blood Disorders: No - INTEGUMENTARY Hx Dermatological Problems: No - MUSCULOSKELETAL/RHEUMATOLOGICAL Hx Musculoskeletal Disorders: No - GASTROINTESTINAL Hx Gastrointestinal Disorders: No - GENITOURINARY/GYNECOLOGICAL Hx Genitourinary Disorders: No - PSYCHIATRIC Hx Psychophysiologic Disorder: No Hx Substance Use: No - SURGICAL HISTORY Hx Surgeries: No - ANESTHESIA Hx Anesthesia: No Hx Anesthesia Reactions: No Hx Malignant Hyperthermia: No Meds Allergies/Adverse Reactions: Allergies Allergy/AdvReac Type Severity Reaction Status Date / Time No Known Allergies Allergy Verified 11/09/16 04:37 Physical Exam - Constitutional Appears: Well, No Acute Distress - Head Exam Head Exam: ATRAUMATIC, NORMAL INSPECTION, NORMOCEPHALIC - Eye Exam Eye Exam: EOMI, Normal appearance, PERRL - ENT Exam ENT Exam: Mucous Membranes Moist, Normal Exam - Neck Exam Neck exam: Positive for: Normal Inspection. Negative for: Lymphadenopathy, Tenderness, Thyromegaly - Respiratory Exam Respiratory Exam: Clear to Auscultation Bilateral, NORMAL BREATHING PATTERN. absent: Accessory Muscle Use, Chest Wall Tenderness, Rales, Rhonchi, Wheezes, Respiratory Distress - Cardiovascular Exam Cardiovascular Exam: RRR, +S1, +S2 - GI/Abdominal Exam GI & Abdominal Exam: Normal Bowel Sounds, Soft. absent: Distended, Tenderness - Extremities Exam Extremities exam: Positive for: full ROM, normal inspection. Negative for: calf tenderness, pedal edema, tenderness - Back Exam Back exam: NORMAL INSPECTION. absent: tenderness - Neurological Exam Neurological exam: Alert, CN II-XII Intact, Oriented x3 Additional comments: Finger to nose normal - Psychiatric Exam Psychiatric exam: Anxious, Normal Mood - Skin Skin Exam: Normal Color, Warm Results - Vital Signs Recent Vital Signs: Last Vital Signs Temp 97.7 F 11/09/16 04:36 Pulse 83 11/09/16 04:36 Resp 20 11/09/16 04:36 BP 111/78 11/09/16 04:36 Pulse Ox 99 11/09/16 04:36 - Labs Result Diagrams: 11/09/16 04:41 11/09/16 04:41 Assessment & Plan - Assessment and Plan (Free Text) Assessment: Ms Hodges is a 25yo Female with PMH epilepsy who presents with more frequent seizures, the last one being this morning before ED. Pt has been on Keppra 500BID and Topamax 100BID since last admission but was unable to f/u Dr. Perez. Plan: 1. seizures - Telemetry for observation - Neuro checks Q2 - start Keppra 1000mg IV daily and Topamax 100mg BID PO - Neuro consult: Dr. Perez - f/u CT Head, EEG - fall risk - NPO, advance diet if tolerated PPX: heparin and SCDs, ptx Patient d/w attending, Dr. Janki Unger PGY1 - Date & Time Date: 11/09/16 Time: 06:00 <Dhruv Shearer - Last Filed: 11/09/16 20:23> Results - Vital Signs Recent Vital Signs: Last Vital Signs Temp 98.7 F 11/09/16 16:00 Pulse 67 11/09/16 16:00 Resp 20 11/09/16 16:00 BP 95/64 L 11/09/16 16:00 Pulse Ox 99 11/09/16 16:00 - Labs Result Diagrams: 11/09/16 12:45 11/09/16 12:45 Labs: Laboratory Results - last 24 hr 11/09/16 11/09/16 12:45 12:45 WBC 3.7 L RBC 3.85 Hgb 11.5 L Hct 32.9 L MCV 85.5 MCH 29.9 MCHC 35.0 RDW 12.8 Plt Count 189 MPV 9.4 Sodium 141 Potassium 4.0 Chloride 111 H Carbon Dioxide 21 Anion Gap 13 BUN 11 Creatinine 0.8 Est GFR ( Amer) > 60 Est GFR (Non-Af Amer) > 60 Random Glucose 82 Calcium 8.6 Total Bilirubin 0.3 AST 20 ALT 26 Alkaline Phosphatase 68 Total Protein 6.9 Albumin 3.9 Globulin 3.0 Albumin/Globulin Ratio 1.3 Attending/Attestation - Attestation I have personally seen and examined this patient.: Yes I have fully participated in the care of the patient.: Yes I have reviewed all pertinent clinical information: Yes Notes (Text): 11/09/16 20:22 Patient was seen when she was in the ER. Agree with history , physical examination, assessment and plan.
--- NOTE | 2016-11-09 07:14 | CT ---
EXAM: CT Head Without Intravenous Contrast EXAM DATE/TIME: 11/09/2016 6:10 AM CLINICAL HISTORY: 25 years old, female; Signs and symptoms; Other: Seizure; Additional info: Seizures TECHNIQUE: Axial computed tomography images of the head/brain without intravenous contrast. All CT scans at this facility use one or more dose reduction techniques, viz.: automated exposure control; ma/kV adjustment per patient size (including targeted exams where dose is matched to indication; i.e. head); or iterative reconstruction technique. COMPARISON: CT - HEAD W/O CONTRAST 10/04/2016 9:15:13 AM FINDINGS: No intracranial hemorrhage. No intracranial edema. No evidence of infarct. The sinuses and mastoid air cells are clear. IMPRESSION: No acute findings. No significant change.
[2016-11-09 07:34] VITALS: BMI 30.8
[2016-11-09] MEDS: levETIRAcetam 500mg IVPB 500 MG/100 ML BAG IVPB SCH ×2 (07:38→18:14)
--- NOTE | 2016-11-09 09:48 | CARD ---
APPROVED REPORT EKG Measurement Heart [id number] NE 170P57 [id number] <Conclusion> Normal sinus rhythm Normal ECG
[2016-11-09] MEDS ORDERED: levETIRAcetam 1,000 MG in Sodium Chloride 0.9% 100 ML IV SCH (10:00)
[2016-11-09 12:57] LABS: HEMATOCRIT 32.9 % (36.0-48.0); MEAN CELL VOLUME 85.5 fl (80.0-105.0); MEAN CORPUSCULAR HEMOGLOBIN 29.9 pg (25.0-35.0); MEAN PLATELET VOLUME 9.4 fl (7.0-11.0); RED CELL DISTRIBUTION WIDTH 12.8 % (11.5-14.5); WHITE BLOOD COUNT 3.7 10^3/ul (4.5-11.0)
[2016-11-09 13:02] LABS: ALB/GLOB RATIO 1.3 (1.1-1.8); ALKALINE PHOSPHATASE 68 U/L (38-133); ALT/SGPT 26 U/L (7-56); AST/SGOT 20 U/L (15-39); BILIRUBIN,TOTAL 0.3 mg/dL (0.2-1.3); BLOOD UREA NITROGEN 11 mg/dL (7-21); CALCIUM 8.6 mg/dL (8.4-10.5); CARBON DIOXIDE 21 mmol/L (21-33); CHLORIDE 111 mmol/L (98-107); GFR AFRICAN-AMERICAN > 60; GLUCOSE,RANDOM 82 mg/dL (70-110); SODIUM 141 mmol/L (132-148); TOTAL PROTEIN 6.9 g/dL (5.8-8.3)
[2016-11-09] MEDS: Pantoprazole 40 mg EC Tab PO SCH (17:22)
--- NOTE | 2016-11-09 23:03 | CON ---
DATE: HISTORY OF PRESENT ILLNESS: This is a 25-year-old female with past medical history of seizure and came to hospital for seizure. No tongue bite. No urinary incontinence, having more frequently, and also complaining of numbness and tingling on the right side of the body. PAST MEDICAL HISTORY: Seizure. MEDICATIONS: Keppra and Topamax. ALLERGIES: NO KNOWN DRUG ALLERGIES. SOCIAL HISTORY: Lives with . Does smoke. Does not drink. She attends Dr. Moore for seizure management. PHYSICAL EXAMINATION: HEENT: Normocephalic and atraumatic. NECK: Supple. NEUROLOGIC: Alert, awake, and oriented to self and place, no aphasia. Cranial nerves II-XII were tested and cerebellar, no dysmetria. Gait is normal. IMPRESSION AND PLAN: A 25-year-old female with past medical history of epilepsy and having more seizure. The patient is on Keppra and Topamax. We will do the EEG and followup. Roberto Perez MD
[2016-11-10] MEDS: levETIRAcetam 500mg IVPB 500 MG/100 ML BAG IVPB SCH ×2 (06:06→20:11)
[2016-11-10] MEDS: Pantoprazole 40 mg EC Tab PO SCH ×3 (06:07→18:20)
[2016-11-10 12:06] LABS: HEMATOCRIT 33.5 % (36.0-48.0); MEAN CELL VOLUME 85.7 fl (80.0-105.0); MEAN CORPUSCULAR HEMOGLOBIN 29.7 pg (25.0-35.0); MEAN CORPUSCULAR HGB CONC 34.6 g/dl (31.0-37.0); MEAN PLATELET VOLUME 9.4 fl (7.0-11.0); RED CELL DISTRIBUTION WIDTH 12.8 % (11.5-14.5); WHITE BLOOD COUNT 3.9 10^3/ul (4.5-11.0)
[2016-11-10 12:10] LABS: ALB/GLOB RATIO 1.3 (1.1-1.8); ALKALINE PHOSPHATASE 61 U/L (38-133); ALT/SGPT 25 U/L (7-56); AST/SGOT 19 U/L (15-39); BILIRUBIN,TOTAL 0.3 mg/dL (0.2-1.3); BLOOD UREA NITROGEN 12 mg/dL (7-21); CALCIUM 8.8 mg/dL (8.4-10.5); CARBON DIOXIDE 22 mmol/L (21-33); CHLORIDE 111 mmol/L (98-107); GFR AFRICAN-AMERICAN > 60; GLUCOSE,RANDOM 89 mg/dL (70-110); POTASSIUM 3.9 mmol/L (3.6-5.0); SODIUM 143 mmol/L (132-148); TOTAL PROTEIN 6.9 g/dL (5.8-8.3)
[2016-11-10] MEDS ORDERED: Sodium Chloride 0.9% 500 ML IV STA (16:27)
[2016-11-10 16:29] VITALS: O2SAT 100
[2016-11-10] MEDS ORDERED: Gadodiamide 287 MG/ML VIAL (15ML) IV ONE (19:01)
--- NOTE | 2016-11-10 20:20 | CP.PCM.PN ---
<Abiel Harley - Last Filed: 11/10/16 20:16> Subjective - Date & Time of Evaluation Date of Evaluation: 11/10/16 Time of Evaluation: 20:17 - Subjective Subjective: Patient has been seen and examined. NO overnight events reported by staff. Patient states she had 3 seizures overnight each lasting less than a minute and less aggressive than the previous seizures. Denies tongue biting or incontinence during seizures. Denies any symptoms of post-ictal state. Denies chest pain, SOB, urinary or bowel incontinence, headache, abdominal pain, nausea , vomiting, diarrhea. Objective - Vital Signs/Intake and Output Vital Signs (last 24 hours): Temp Pulse Resp BP Pulse Ox 98.8 F 67 19 101/65 100 11/10/16 16:00 11/10/16 17:04 11/10/16 16:00 11/10/16 17:04 11/10/16 16:00 - Medications Medications: Current Medications Levetiracetam (Keppra 500mg Ivpb) 500 mg in 100 mls @ 460 mls/hr IVPB Q12H [facility] Last Admin: 11/10/16 20:11 Dose: 460 mls/hr Pantoprazole Sodium (Protonix Ec Tab) 40 mg PO 0600,1600 [facility] Last Admin: 11/10/16 18:20 Dose: Not Given Topiramate (Topamax) 100 mg PO BID [facility] PRN Reason: Protocol Last Admin: 11/10/16 18:17 Dose: 100 mg - Labs Labs: 11/10/16 11:50 11/10/16 11:50 APTT 28.5 Seconds (23.7-30.8) 11/09/16 05:00 - Constitutional Appears: Well, No Acute Distress - Head Exam Head Exam: ATRAUMATIC, NORMAL INSPECTION, NORMOCEPHALIC - Eye Exam Eye Exam: EOMI - ENT Exam ENT Exam: Mucous Membranes Moist - Respiratory Exam Respiratory Exam: Clear to Ausculation Bilateral, NORMAL BREATHING PATTERN. absent: Rales, Rhonchi, Wheezes - Cardiovascular Exam Cardiovascular Exam: RRR, +S1, +S2 - GI/Abdominal Exam GI & Abdominal Exam: Soft, Normal Bowel Sounds. absent: Tenderness - Neurological Exam Neurological Exam: Awake, Oriented x3 Assessment and Plan - Assessment and Plan (Free Text) Assessment: 25yo Female with PMHx epilepsy admitted for increasing seizures. Plan: 1. Seizures - Telemetry for observation - Neuro checks Q2 - Cont. Keppra 1000mg IV daily and Topamax 100mg BID PO - Neuro consult - EEG read pending. Head MRI ordered - fall risk - NPO, advance diet if tolerated PPX: heparin and SCDs, ptx Patient seen, discussed, and reviewed with Attending Abiel Harley PGY1 <Philip Ramsey MD - Last Filed: 11/11/16 17:35> Objective - Vital Signs/Intake and Output Vital Signs (last 24 hours): Temp Pulse Resp BP Pulse Ox 97.8 F 57 L 20 104/58 L 100 11/11/16 06:00 11/11/16 14:00 11/11/16 06:00 11/11/16 06:00 11/11/16 06:00 Intake and Output: 11/11/16 11/11/16 06:59 18:59 Intake Total 540 480 Balance 540 480 - Medications Medications: Current Medications Levetiracetam (Keppra 500mg Ivpb) 500 mg in 100 mls @ 460 mls/hr IVPB Q12H [facility] Last Admin: 11/11/16 07:08 Dose: Not Given Pantoprazole Sodium (Protonix Ec Tab) 40 mg PO 0600,1600 [facility] Last Admin: 11/11/16 05:56 Dose: Not Given Topiramate (Topamax) 100 mg PO BID [facility] PRN Reason: Protocol Last Admin: 11/11/16 09:49 Dose: 100 mg - Labs Labs: 11/11/16 06:00 11/11/16 06:00 APTT 28.5 Seconds (23.7-30.8) 11/09/16 05:00 Attending/Attestation - Attestation I have personally seen and examined this patient.: Yes I have fully participated in the care of the patient.: Yes I have reviewed all pertinent clinical information, including history, physical exam and plan: Yes Notes (Text): 11/11/16 17:31 Patient was seen and examined with electromedical equipment technician. Agreed with resident assessment and plan. 25 Yrs old female with PMH of seizure disorder is admitted with history of multiple seizure at home, however patient was never post ictal, there is was no incontinence of urine or stool.Patient was able to call her right after seizure.Patient case was discussed with Neurology.We will follow up EEG and MRI. We will continue anti seizure medications and monitor Management plan was discussed in detail with patient Education was provided.
--- NOTE | 2016-11-10 20:40 | MRI ---
EXAM: MR Head Without and With Intravenous Contrast EXAM DATE/TIME: 11/10/2016 4:21 PM CLINICAL HISTORY: 25 years old, female; Condition or disease; Other: Seizures since 4 years old; Additional info: Seizure TECHNIQUE: Magnetic resonance images of the head/brain without and with intravenous contrast in multiple planes. CONTRAST: 15 mL of OMNISCAN administered intravenously. COMPARISON: Prior head CT of 11/09/2016 FINDINGS: BRAIN: Multiple scattered, tiny foci of increased T2 and FLAIR signal are seen in the brain, localized to the white matter, primarily the subcortical white matter, best seen on the FLAIR images, located in the right frontal, left frontal, and left temporal lobes. At least 4 are seen, image 20/series 5, image 12/series 5, image 17/series 11, and image 5/series 11. The largest of these, in the left temporal lobe, measures 4 mm. There is no associated abnormal enhancement or significant surrounding edema. No other significant intracranial abnormality identified. No evidence of restricted diffusion/acute infarct. No evidence of significant mass effect within the brain. No acute extra-axial fluid collections visualized.Normal knott-white matter differentiation. VENTRICLES: No evidence of significant hydrocephalus. BONES/JOINTS: No acute bony abnormality identified. SINUSES: No evidence of sinus fluid levels. MASTOID AIR CELLS: Mastoid air cells appear clear. ORBITS: No acute intraorbital abnormality seen. IMPRESSION: - Multiple scattered, tiny foci of signal abnormality in the white matter bilaterally. In a patient of this age, the primary differential considerations include demyelinating disease, such as multiple sclerosis, and Lyme disease. Other white matter diseases are not excluded. - See above for remaining findings.
--- NOTE | 2016-11-10 20:45 | CP.PCM.CON ---
<Mohit Mccray - Last Filed: 11/10/16 20:29> History of Present Illness - History of Present Illness History of Present Illness: Neurology Consult Note for Dr. Perez Service. Consulted for: Seizures HPI: This is a 25 yo F with PMH epilepsy and prior seizures who presented to [facility] with more frequent episodes of seizures, the last being 15 mins before ED visit. Pt was recently discharged from [facility] for the same complaints and couldn' t f/u with Dr. Perez or obtain her outpatient MRI due to scheduling issues. She admits that she self-discontinued her Keppra and Topamax several months ago (not more specific) as she hadn't had further seizures, so she didn't think she needed to take them anymore. Reports having resumed the Keppra and Topamax for ~1-2 months, and takes as previously instructed. Reports increased seizure activity, up to nightly, but describes seizures as tonic-clonic seizures but usually awake and talkative during the episodes. Reports occasional loss of memory from the seizures, but generally remembers them, including immediately prior and after the episodes. Reports occasional tongue biting, never bowel/ bladder incontinence. States that she feels an aura before the seizures, describes as R-sided paresthesia of the body with occasional sensation of electric shock. Reports good sleep hygiene, ~8 hours per night regularly. Currently denies acute complaints, including chest pain, shortness of breath, nausea/emesis, PO intolerance, diarrhea/constipation, dysuria/hematuria, vision changes, or focal weakness. All remaining ROS in 12-point system review negative. 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, denies smoking tobacco/ ETOH/drug use FHx: mom has thyroid issues, nephew has epilepsy PMD: None Review of Systems - Review of Systems All systems: reviewed and no additional remarkable complaints except (as per HPI ) Past Patient History - Infectious Disease Hx of Infectious Diseases: None - Tetanus Immunizations Tetanus Immunization: Unknown - Past Medical History & Family History Past Medical History?: Yes - Past Social History Smoking Status: Never Smoked Alcohol: None Drugs: Denies Home Situation {Lives}: With Family - CARDIAC Hx Cardiac Disorders: No - PULMONARY Hx Respiratory Disorders: No - NEUROLOGICAL Hx Seizures: Yes Other/Comment: childhood epilepsy - HEENT Hx HEENT Problems: No - RENAL Hx Chronic Kidney Disease: No - ENDOCRINE/METABOLIC Hx Endocrine Disorders: No - HEMATOLOGICAL/ONCOLOGICAL Hx Blood Disorders: No - INTEGUMENTARY Hx Dermatological Problems: No - MUSCULOSKELETAL/RHEUMATOLOGICAL Hx Musculoskeletal Disorders: No - GASTROINTESTINAL Hx Gastrointestinal Disorders: No - GENITOURINARY/GYNECOLOGICAL Hx Genitourinary Disorders: No - PSYCHIATRIC Hx Psychophysiologic Disorder: No Hx Substance Use: No - SURGICAL HISTORY Hx Surgeries: No - ANESTHESIA Hx Anesthesia: No Hx Anesthesia Reactions: No Hx Malignant Hyperthermia: No Meds Allergies/Adverse Reactions: Allergies Allergy/AdvReac Type Severity Reaction Status Date / Time No Known Allergies Allergy Verified 11/09/16 04:37 - Medications Medications: Current Medications Levetiracetam (Keppra 500mg Ivpb) 500 mg in 100 mls @ 460 mls/hr IVPB Q12H [facility] Last Admin: 11/10/16 20:11 Dose: 460 mls/hr Pantoprazole Sodium (Protonix Ec Tab) 40 mg PO 0600,1600 [facility] Last Admin: 11/10/16 18:20 Dose: Not Given Topiramate (Topamax) 100 mg PO BID [facility] PRN Reason: Protocol Last Admin: 11/10/16 18:17 Dose: 100 mg Physical Exam - Additional Findings Additional findings: - Constitutional Appears: Well, No Acute Distress - Head Exam Head Exam: ATRAUMATIC, NORMAL INSPECTION, NORMOCEPHALIC - Eye Exam Eye Exam: EOMI, Normal appearance, PERRL. Absent: Irregular/Unequal pupils, Conjunctival injection, Scleral icterus - ENT Exam ENT Exam: Mucous Membranes Moist, Normal Exam - Neck Exam Neck exam: Normal Inspection, Full ROM, No meningeal signs - Respiratory Exam Respiratory Exam: Clear to Auscultation Bilateral, NORMAL BREATHING PATTERN. absent: Accessory Muscle Use, Chest Wall Tenderness, Rales, Rhonchi, Wheezes, Respiratory Distress, Tachypnea, Koffi Cyanosis - Cardiovascular Exam Cardiovascular Exam: RRR, +S1, +S2. Absent: Tachycardia, Bradycardia, JVD - GI/Abdominal Exam GI & Abdominal Exam: Normal Bowel Sounds, Soft. absent: Distended, Tenderness, Rigid, Firm - Extremities Exam Extremities exam: Positive for: full ROM, normal inspection. Negative for: calf tenderness, pedal edema, tenderness - Neurological Exam Neurological exam: Awake and Alert, CN II-XII Intact, Gross Motor and Sensory intact and equal in bilateral UE and LE, 5/5 UE and LE Motor strength in flexion /extension/learning center instructor strength, Oriented x3 (self, location, year) - Psychiatric Exam Psychiatric exam: Anxious, Normal Affect - Skin Skin Exam: Normal Color, Warm, Dry, Intact Results - Vital Signs Recent Vital Signs: Last Vital Signs Temp 98.8 F 11/10/16 16:00 Pulse 67 11/10/16 17:04 Resp 19 11/10/16 16:00 BP 101/65 11/10/16 17:04 Pulse Ox 100 11/10/16 16:00 - Labs Result Diagrams: 11/10/16 11:50 11/10/16 11:50 Labs: Laboratory Results - last 24 hr 11/10/16 11/10/16 11:50 11:50 WBC 3.9 L RBC 3.91 Hgb 11.6 L Hct 33.5 L MCV 85.7 MCH 29.7 MCHC 34.6 RDW 12.8 Plt Count 184 MPV 9.4 Sodium 143 Potassium 3.9 Chloride 111 H Carbon Dioxide 22 Anion Gap 14 BUN 12 Creatinine 0.8 Est GFR ( Amer) > 60 Est GFR (Non-Af Amer) > 60 Random Glucose 89 Calcium 8.8 Total Bilirubin 0.3 AST 19 ALT 25 Alkaline Phosphatase 61 Total Protein 6.9 Albumin 3.9 Globulin 3.0 Albumin/Globulin Ratio 1.3 Assessment & Plan - Assessment and Plan (Free Text) Assessment: This is a 25 yo F with PMH epilepsy, prior seizures, and admitted medication non -compliance who presented to [facility] with increasing frequency of seizures. Epileptic vs non-epileptic seizures. May be due to underlying epilepsy complicated by recent medication non-compliance. Given patient's description of seizures during which she remains conscious and talkative, pseudo-seizure component possible as well. Anxiety may be contributing component to patient's presentation. Plan: 1) EEG obtained, Normal 2) MRI with and without contrast ordered, will f/u 3) Continue current anti-seizure medications: Topamax 100mg PO BID and Keppra 500mg IVPB q12 4) Recommend psych consult for anxiety; Primary team reports patient refusing psych consult 5) Ensure good sleep hygiene If MRI is normal, next step will involve referral to Epilepticist (Dr. Bacon) for 24-hour video continuous EEG monitoring, at [facility] or [place]. Patient seen, reviewed, and discussed with attending, Dr. Brandon Perez. <Jay Perez - Last Filed: 11/11/16 11:17> Meds - Medications Medications: Current Medications Levetiracetam (Keppra 500mg Ivpb) 500 mg in 100 mls @ 460 mls/hr IVPB Q12H [facility] Last Admin: 11/11/16 07:08 Dose: Not Given Pantoprazole Sodium (Protonix Ec Tab) 40 mg PO 0600,1600 [facility] Last Admin: 11/11/16 05:56 Dose: Not Given Topiramate (Topamax) 100 mg PO BID [facility] PRN Reason: Protocol Last Admin: 11/11/16 09:49 Dose: 100 mg Results - Vital Signs Recent Vital Signs: Last Vital Signs Temp 97.8 F 11/11/16 06:00 Pulse 52 L 11/11/16 06:00 Resp 20 11/11/16 06:00 BP 104/58 L 11/11/16 06:00 Pulse Ox 100 11/11/16 06:00 - Labs Result Diagrams: 11/11/16 06:00 11/11/16 06:00 Labs: Laboratory Results - last 24 hr 11/10/16 11/10/16 11/11/16 11:50 11:50 06:00 WBC 3.9 L 3.6 L RBC 3.91 3.88 Hgb 11.6 L 11.6 L Hct 33.5 L 33.4 L MCV 85.7 86.1 MCH 29.7 29.9 MCHC 34.6 34.7 RDW 12.8 12.9 Plt Count 184 199 MPV 9.4 9.6 Sodium 143 Potassium 3.9 Chloride 111 H Carbon Dioxide 22 Anion Gap 14 BUN 12 Creatinine 0.8 Est GFR ( Amer) > 60 Est GFR (Non-Af Amer) > 60 Random Glucose 89 Calcium 8.8 Total Bilirubin 0.3 AST 19 ALT 25 Alkaline Phosphatase 61 Total Protein 6.9 Albumin 3.9 Globulin 3.0 Albumin/Globulin Ratio 1.3 11/11/16 06:00 WBC RBC Hgb Hct MCV MCH MCHC RDW Plt Count MPV Sodium 143 Potassium 4.0 Chloride 111 H Carbon Dioxide 20 L Anion Gap 16 BUN 13 Creatinine 0.9 Est GFR ( Amer) > 60 Est GFR (Non-Af Amer) > 60 Random Glucose 85 Calcium 8.9 Total Bilirubin 0.3 AST 16 ALT 26 Alkaline Phosphatase 62 Total Protein 6.8 Albumin 3.8 Globulin 3.0 Albumin/Globulin Ratio 1.3 Attending/Attestation - Attestation I have personally seen and examined this patient.: Yes I have fully participated in the care of the patient.: Yes I have reviewed all pertinent clinical information: Yes
[2016-11-11] MEDS: levETIRAcetam 500mg IVPB 500 MG/100 ML BAG IVPB SCH ×2 (05:52→07:08)
[2016-11-11] MEDS: Pantoprazole 40 mg EC Tab PO SCH (05:56)
--- NOTE | 2016-11-11 06:42 | CP.PCM.PCO ---
<AIMEE UNGER - Last Filed: 11/11/16 06:40> Physician Communication Note - Physician Communication Note Physician Communication Note: page for unwitnessed seizure,eval: pt is awake and alert with no sx; keppra <Dhruv Shearer - Last Filed: 11/14/16 20:37> Attending/Attestation - Attestation I have personally seen and examined this patient.: No I have fully participated in the care of the patient.: Yes I have reviewed all pertinent clinical information: Yes
[2016-11-11 06:50] LABS: HEMATOCRIT 33.4 % (36.0-48.0); MEAN CELL VOLUME 86.1 fl (80.0-105.0); MEAN CORPUSCULAR HEMOGLOBIN 29.9 pg (25.0-35.0); MEAN CORPUSCULAR HGB CONC 34.7 g/dl (31.0-37.0); MEAN PLATELET VOLUME 9.6 fl (7.0-11.0); RED CELL DISTRIBUTION WIDTH 12.9 % (11.5-14.5); WHITE BLOOD COUNT 3.6 10^3/ul (4.5-11.0)
[2016-11-11 07:09] LABS: ALB/GLOB RATIO 1.3 (1.1-1.8); ALKALINE PHOSPHATASE 62 U/L (38-133); ALT/SGPT 26 U/L (7-56); AST/SGOT 16 U/L (15-39); BILIRUBIN,TOTAL 0.3 mg/dL (0.2-1.3); BLOOD UREA NITROGEN 13 mg/dL (7-21); CALCIUM 8.9 mg/dL (8.4-10.5); CARBON DIOXIDE 20 mmol/L (21-33); CHLORIDE 111 mmol/L (98-107); GFR AFRICAN-AMERICAN > 60; GLUCOSE,RANDOM 85 mg/dL (70-110); SODIUM 143 mmol/L (132-148); TOTAL PROTEIN 6.8 g/dL (5.8-8.3)
--- NOTE | 2016-11-11 08:20 | EEG ---
DATE: 11/10/2016 CONDITION OF THE RECORDING: Drowsy. DIAGNOSIS: Seizure. MEDICATIONS: Keppra and Topamax. INTERPRETATION: This is a 16-channel international recording. The background activity is composed of 8-9 cycles per second. There was a small amount of beta activity of 16-20 cycles per second seen in this recording. There was increased amount of theta activity 5 to 7 cycles per second seen in this tracing. Drowsiness was characterized by mixed beta and theta activities and sleep was characterized by vertex transient, sleep spindle, bilateral slowing. Photic stimulation showed no change in the tracing. No paroxysmal activity noted in this recording. CONCLUSION: This is a normal drowsy EEG. No evidence of any epileptiform activity. Please clinically correlate. Jay Perez MD
[2016-11-11 08:41] VITALS: BP 104/58; RESP 20; TEMP 97.8
--- NOTE | 2016-11-11 16:07 | CP.PCM.PN ---
<Mohit Mccray - Last Filed: 11/11/16 15:58> Subjective - Date & Time of Evaluation Date of Evaluation: 11/11/16 Time of Evaluation: 09:10 - Subjective Subjective: Neurology Progress Note for Dr. Perez Service Patient seen and examined at bedside. Earlier in AM, patient reported another unwitnessed seizure to nursing. As per night team, patient to receive AM keppra does early. At time of exam, patient denies acute complaints, including chest pain, shortness of breath, focal weakness, extremity tremors/paresthesias , tongue biting, bowel or bladder incontinence, or syncope/pre-syncope/LOC/ memory loss. Objective - Vital Signs/Intake and Output Vital Signs (last 24 hours): Temp Pulse Resp BP Pulse Ox 97.8 F 83 20 104/58 L 100 11/11/16 06:00 11/11/16 10:00 11/11/16 06:00 11/11/16 06:00 11/11/16 06:00 Intake and Output: 11/11/16 11/11/16 06:59 18:59 Intake Total 540 480 Balance 540 480 - Medications Medications: Current Medications Levetiracetam (Keppra 500mg Ivpb) 500 mg in 100 mls @ 460 mls/hr IVPB Q12H [facility] Last Admin: 11/11/16 07:08 Dose: Not Given Pantoprazole Sodium (Protonix Ec Tab) 40 mg PO 0600,1600 [facility] Last Admin: 11/11/16 05:56 Dose: Not Given Topiramate (Topamax) 100 mg PO BID [facility] PRN Reason: Protocol Last Admin: 11/11/16 09:49 Dose: 100 mg - Labs Labs: 11/11/16 06:00 11/11/16 06:00 APTT 28.5 Seconds (23.7-30.8) 11/09/16 05:00 - Additional Findings Additional findings: - Constitutional Appears: Well, No Acute Distress, Resting comfortably in bed - Head Exam Head Exam: ATRAUMATIC, NORMAL INSPECTION, NORMOCEPHALIC - Eye Exam Eye Exam: EOMI, Normal appearance, PERRL. Absent: Irregular/Unequal pupils, Conjunctival injection, Scleral icterus - ENT Exam ENT Exam: Mucous Membranes Moist, Normal Exam - Neck Exam Neck exam: Normal Inspection, Full ROM, No meningeal signs - Respiratory Exam Respiratory Exam: Clear to Auscultation Bilateral, NORMAL BREATHING PATTERN. absent: Accessory Muscle Use, Chest Wall Tenderness, Rales, Rhonchi, Wheezes, Respiratory Distress, Tachypnea, Koffi Cyanosis - Cardiovascular Exam Cardiovascular Exam: RRR, +S1, +S2. Absent: Tachycardia, Bradycardia, JVD - GI/Abdominal Exam GI & Abdominal Exam: Normal Bowel Sounds, Soft. absent: Distended, Tenderness, Rigid, Firm - Extremities Exam Extremities exam: Positive for: full ROM, normal inspection. 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 Epileptic vs non-epileptic seizures. May be due to underlying epilepsy complicated by recent medication non-compliance. Given patient's description of seizures during which she remains conscious and talkative, pseudo-seizure component possible as well. Anxiety may be contributing component to patient's presentation. EEG obtained and normal, and MRI with and without contrast unremarkable for any foci of seizures, so patient informed that she will need to establish with an Epileptologist and undergoing video-monitored 24-hour EEG. Plan: 1) EEG & MRI obtained, Normal 2) Anti-seizure medication regimen at home increased; Keppra 750mg PO qAM and 500mg PO qHS, Topamax 100mg PO BID; communicated with primary team 3) Recommend psych consult for anxiety; Pt now ammenable to seeing psych 4) Ensure good sleep hygiene 5) Referral given for Dr. Randy Bacon for outpt 24-hour video-monitored EEG; Patient informed that until cleared by epileptologist, she may not drive. Primary team to notify [facility] of patient's seizure status At this time, patient cleared for discharge from Neurology standpoint. Thank you for this interesting consult. Patient seen, reviewed, and discussed with attending, Dr. Brandon Perez. <Jay Perez - Last Filed: 11/11/16 17:06> Objective - Vital Signs/Intake and Output Vital Signs (last 24 hours): Temp Pulse Resp BP Pulse Ox 97.8 F 83 20 104/58 L 100 11/11/16 06:00 11/11/16 10:00 11/11/16 06:00 11/11/16 06:00 11/11/16 06:00 Intake and Output: 11/11/16 11/11/16 06:59 18:59 Intake Total 540 480 Balance 540 480 - Medications Medications: Current Medications Levetiracetam (Keppra 500mg Ivpb) 500 mg in 100 mls @ 460 mls/hr IVPB Q12H [facility] Last Admin: 11/11/16 07:08 Dose: Not Given Pantoprazole Sodium (Protonix Ec Tab) 40 mg PO 0600,1600 [facility] Last Admin: 11/11/16 05:56 Dose: Not Given Topiramate (Topamax) 100 mg PO BID [facility] PRN Reason: Protocol Last Admin: 11/11/16 09:49 Dose: 100 mg - Labs Labs: 11/11/16 06:00 11/11/16 06:00 APTT 28.5 Seconds (23.7-30.8) 11/09/16 05:00 Attending/Attestation - Attestation I have personally seen and examined this patient.: Yes I have fully participated in the care of the patient.: Yes I have reviewed all pertinent clinical information, including history, physical exam and plan: Yes
--- NOTE | 2016-11-11 16:52 | CP.PCM.PCO ---
Addendum Addendum: 11/11/16 16:50 this filing writer attempted to evaluate pt, pt was discharged prior d/w earlier, pt was not depressed, not suicidal, medical team initiated consult for evaluation of possible pseudoseizures pt also had a lot of social issues which could contribute to the pt's condition pt did not express any thoughts of harming self/others, no psychotic symptoms, no psychosis or disorganized behavior, no aggression.
[2016-11-11 17:18] VITALS: PULSE 57
--- NOTE | 2016-11-11 22:39 | CP.PCM.DIS ---
<Abiel Harley - Last Filed: 11/11/16 23:35> Provider - Provider Date of Admission: 11/09/16 05:37 Attending physician: Philip Ramsey MD Primary care physician: NO PRIMARY CARE PROVIDER Consults: Psych - Dr. Russo Neurology - Dr. Perez Time Spent in preparation of Discharge (in minutes): 40 Hospital Course - Lab Results Lab Results: Most Recent Lab Values WBC 3.6 10^3/ul (4.5-11.0) L 11/11/16 06:00 RBC 3.88 10^6/uL (3.5-6.1) 11/11/16 06:00 Hgb 11.6 g/dL (12.0-16.0) L 11/11/16 06:00 Hct 33.4 % (36.0-48.0) L 11/11/16 06:00 MCV 86.1 fl (80.0-105.0) 11/11/16 06:00 MCH 29.9 pg (25.0-35.0) 11/11/16 06:00 MCHC 34.7 g/dl (31.0-37.0) 11/11/16 06:00 RDW 12.9 % (11.5-14.5) 11/11/16 06:00 Plt Count 199 10^3/uL (120.0-450.0) 11/11/16 06:00 MPV 9.6 fl (7.0-11.0) 11/11/16 06:00 APTT 28.5 Seconds (23.7-30.8) 11/09/16 05:00 Sodium 143 mmol/L (132-148) 11/11/16 06:00 Potassium 4.0 mmol/L (3.6-5.0) 11/11/16 06:00 Chloride 111 mmol/L (98-107) H 11/11/16 06:00 Carbon Dioxide 20 mmol/L (21-33) L 11/11/16 06:00 Anion Gap 16 (10-20) 11/11/16 06:00 BUN 13 mg/dL (7-21) 11/11/16 06:00 Creatinine 0.9 mg/dL (0.5-1.4) 11/11/16 06:00 Est GFR ( Amer) > 60 11/11/16 06:00 Est GFR (Non-Af Amer) > 60 11/11/16 06:00 Random Glucose 85 mg/dL (70-110) 11/11/16 06:00 Calcium 8.9 mg/dL (8.4-10.5) 11/11/16 06:00 Total Bilirubin 0.3 mg/dL (0.2-1.3) 11/11/16 06:00 AST 16 U/L (15-39) 11/11/16 06:00 ALT 26 U/L (7-56) 11/11/16 06:00 Alkaline Phosphatase 62 U/L (38-133) 11/11/16 06:00 Total Protein 6.8 g/dL (5.8-8.3) 11/11/16 06:00 Albumin 3.8 g/dL (3.0-4.8) 11/11/16 06:00 Globulin 3.0 gm/dL 11/11/16 06:00 Albumin/Globulin Ratio 1.3 (1.1-1.8) 11/11/16 06:00 Urine Opiates Screen Negative (NEGATIVE) 11/09/16 05:00 Urine Methadone Screen Negative (NEGATIVE) 11/09/16 05:00 Ur Barbiturates Screen Negative (NEGATIVE) 11/09/16 05:00 Ur Phencyclidine Scrn Negative (NEGATIVE) 11/09/16 05:00 Ur Amphetamines Screen Negative (NEGATIVE) 11/09/16 05:00 U Benzodiazepines Scrn Negative (NEGATIVE) 11/09/16 05:00 U Oth Cocaine Metabols Negative (NEGATIVE) 11/09/16 05:00 U Cannabinoids Screen Negative (NEGATIVE) 11/09/16 05:00 - Hospital Course Hospital Course: Patient is a 25 year old female who was admitted to [facility] for increased frequency of seizures. she reported nightly seizures for over a month. We started patient on home medications of Keppra 500 BID and Toprimax 100 BID. Patient still complained of multiple seizures at night during hospital state in which there was no post-ictal state and were all unwitnessed. She denied tongue biting or incontinence during the seizure episodes. She reported that they usually last less than a minute. Neurology and Psych were consulted on this case. Patient refused to see Psychiatrist. EEG was normal. MRI showed multiple scattered tiny foci with increased T2 and FLAIR signal are seen in brain, localized to white matter. Primary DDx for this is demyelinating disease like MS or Lyme Disease. Patient was told multiple times not to drive. DMV was contacted on the last visit (Discharged on 10/04/16) about epileptic status. Her Keppra at night was increased to 750. She is to follow up with Epileptologist within week to schedule 24 hour video assisted EEG. Patient is agreeable to plan and medications Patient seen and reviewed with Attending. Abiel Harley PGY1 - Date & Time of H&P Date of H&P: 11/11/16 Time of H&P: 10:15 Discharge Exam - Head Exam Head Exam: ATRAUMATIC, NORMAL INSPECTION, NORMOCEPHALIC - Eye Exam Eye Exam: EOMI, Normal appearance - Respiratory Exam Respiratory Exam: Clear to PA & Lateral - Cardiovascular Exam Cardiovascular Exam: RRR, +S1, +S2 - GI/Abdominal Exam GI & Abdominal Exam: Normal Bowel Sounds, Soft, Tenderness - Neurological Exam Neurological exam: Alert, CN II-XII Intact, Motor Sensory Deficit, Oriented x3 Discharge Plan - Discharge Medications Prescriptions: Levetiracetam [Keppra] 750 mg PO QAM #30 tablet - Follow Up Plan Condition: STABLE Disposition: HOME/ ROUTINE Instructions: Nonepileptic Seizures (DC), Recurrent Seizures in Adults (DC) Additional Instructions: Your medication regiment has been changed. Take Keppra 750mg in morning and 500mg at night Take Toprimax 100mg twice daily as you have been before. Follow up with Primary Physician within 1 week. Follow up with Epilepticist (Dr. Bacon) to schedule 24 hr video assisted EEG within one week. Dr Bacon - Please do not drive. Referrals: Arleen GONZALES,Randy Longoria MD [Non-Staff] - PCP,NO [Primary Care Provider] - <Philip Ramsey MD - Last Filed: 11/14/16 10:13> Provider - Provider Date of Admission: 11/09/16 05:37 Attending physician: Philip Ramsey MD Primary care physician: NO PRIMARY CARE PROVIDER Hospital Course - Lab Results Lab Results: Most Recent Lab Values WBC 3.6 10^3/ul (4.5-11.0) L 11/11/16 06:00 RBC 3.88 10^6/uL (3.5-6.1) 11/11/16 06:00 Hgb 11.6 g/dL (12.0-16.0) L 11/11/16 06:00 Hct 33.4 % (36.0-48.0) L 11/11/16 06:00 MCV 86.1 fl (80.0-105.0) 11/11/16 06:00 MCH 29.9 pg (25.0-35.0) 11/11/16 06:00 MCHC 34.7 g/dl (31.0-37.0) 11/11/16 06:00 RDW 12.9 % (11.5-14.5) 11/11/16 06:00 Plt Count 199 10^3/uL (120.0-450.0) 11/11/16 06:00 MPV 9.6 fl (7.0-11.0) 11/11/16 06:00 APTT 28.5 Seconds (23.7-30.8) 11/09/16 05:00 Sodium 143 mmol/L (132-148) 11/11/16 06:00 Potassium 4.0 mmol/L (3.6-5.0) 11/11/16 06:00 Chloride 111 mmol/L (98-107) H 11/11/16 06:00 Carbon Dioxide 20 mmol/L (21-33) L 11/11/16 06:00 Anion Gap 16 (10-20) 11/11/16 06:00 BUN 13 mg/dL (7-21) 11/11/16 06:00 Creatinine 0.9 mg/dL (0.5-1.4) 11/11/16 06:00 Est GFR ( Amer) > 60 11/11/16 06:00 Est GFR (Non-Af Amer) > 60 11/11/16 06:00 Random Glucose 85 mg/dL (70-110) 11/11/16 06:00 Calcium 8.9 mg/dL (8.4-10.5) 11/11/16 06:00 Total Bilirubin 0.3 mg/dL (0.2-1.3) 11/11/16 06:00 AST 16 U/L (15-39) 11/11/16 06:00 ALT 26 U/L (7-56) 11/11/16 06:00 Alkaline Phosphatase 62 U/L (38-133) 11/11/16 06:00 Total Protein 6.8 g/dL (5.8-8.3) 11/11/16 06:00 Albumin 3.8 g/dL (3.0-4.8) 11/11/16 06:00 Globulin 3.0 gm/dL 11/11/16 06:00 Albumin/Globulin Ratio 1.3 (1.1-1.8) 11/11/16 06:00 Urine Opiates Screen Negative (NEGATIVE) 11/09/16 05:00 Urine Methadone Screen Negative (NEGATIVE) 11/09/16 05:00 Ur Barbiturates Screen Negative (NEGATIVE) 11/09/16 05:00 Ur Phencyclidine Scrn Negative (NEGATIVE) 11/09/16 05:00 Ur Amphetamines Screen Negative (NEGATIVE) 11/09/16 05:00 U Benzodiazepines Scrn Negative (NEGATIVE) 11/09/16 05:00 U Oth Cocaine Metabols Negative (NEGATIVE) 11/09/16 05:00 U Cannabinoids Screen Negative (NEGATIVE) 11/09/16 05:00 Attending/Attestation - Attestation I have personally seen and examined this patient.: Yes I have fully participated in the care of the patient.: Yes I have reviewed all pertinent clinical information, including history, physical exam and plan: Yes Notes (Text): 11/14/16 10:11 Patient was seen and examined with certified medical technician assistant. Agreed with resident assessment and plan. 25 yrs old female with PMH of seizure disorder is admitted with history of multiple seizure at home, however patient was never post ictal, there is was no incontinence of urine or stool.Patient was able to call her right after seizure.EEG is normal.Patient case and MRI finding were discussed with Neurology.Patient will be discharged home on increasing dose of Keppra 750 mg PO BID. She was also advised not to drive.This issue was discussed in detail with her. Management plan was discussed in detail with patient Education was provided.
== END 2016-11-11 18:01 | disposition home or self-care (01) ==
LOC: ED 04:31 → ERH 05:37 → 3RNO 06:46
PROVIDERS: ADMIT Hospitalist; ATTEND Internal Medicine
DX: G40.802 Other epilepsy, not intractable, without status epilepticus (principal); F41.9 Anxiety disorder, unspecified; Z91.14 Patient's other noncompliance with medication regimen
CPT/HCPCS: 36415; 70450; 70553; 80053; 85027; 85730; 93005; 95812; 96361; 96365; 96375; 96376; 99285; A9579; G0378; G0480; J1953; J7040

== ENCOUNTER 2017-03-22 18:21 | Emergency (ER) | payer BC, OTHER ==
[2017-03-22 18:21] VITALS: BMI 30.8
[2017-03-22 19:46] VITALS: BP 103/68; PULSE 82; RESP 16; TEMP 98.9; O2SAT 98
== END 2017-03-22 20:00 | disposition left against medical advice (07) ==
LOC: ED 18:21
DX: Z02.89 Encounter for other administrative examinations (principal); R56.9 Unspecified convulsions

== ENCOUNTER 2017-07-30 20:00 | Inpatient (IN) | payer MEDICAID, OTHER ==
[2017-07-30 20:48] LABS: BASO # 0.01 K/mm3 (0.0-2.0); BASO % 0.2 % (0.0-3.0); EOS # 0.1 (0.0-0.7); EOS % 1.4 % (1.5-5.0); GRAN # 2.96 (1.4-6.5); GRAN % 60.8 % (50.0-68.0); HEMOGLOBIN 12.6 g/dL (12.0-16.0); LYMPH # 1.6 (1.2-3.4); LYMPH % 33.1 % (22.0-35.0); MEAN CELL VOLUME 89.2 fl (80.0-105.0); MEAN CORPUSCULAR HGB CONC 34.8 g/dl (31.0-37.0); MEAN PLATELET VOLUME 9.9 fl (7.0-11.0); MONO # 0.2 (0.1-0.6); MONO % 4.5 % (1.0-6.0); RBC 4.06 10^6/uL (3.5-6.1); RED CELL DISTRIBUTION WIDTH 12.6 % (11.5-14.5); WHITE BLOOD COUNT 4.9 10^3/ul (4.5-11.0)
[2017-07-30 20:58] LABS: ALB/GLOB RATIO 1.4 (1.1-1.8); ALBUMIN 4.8 g/dL (3.0-4.8); ALT/SGPT 24 U/L (7-56); AST/SGOT 25 U/L (14-36); BLOOD UREA NITROGEN 13 mg/dL (7-21); CALCIUM 9.3 mg/dL (8.4-10.5); GFR AFRICAN-AMERICAN > 60; GFR NON-AFRICAN AMERICAN > 60
[2017-07-30 21:08] LABS: BARBITURATES, UR NEGATIVE (NEGATIVE); BENZODIAZEPINES, UR NEGATIVE (NEGATIVE); OPIATES, UR NEGATIVE (NEGATIVE); PHENCYCLIDINE, UR NEGATIVE (NEGATIVE)
[2017-07-30 21:25] LABS: URINE APPEARANCE CLEAR (CLEAR); URINE BILIRUBIN NEGATIVE (NEGATIVE); URINE BLOOD NEGATIVE (NEGATIVE); URINE COLOR YELLOW (YELLOW); URINE GLUCOSE (UA) NEGATIVE (NEGATIVE); URINE LEUKOCYTE ESTERASE NEGATIVE Leu/uL (NEGATIVE); URINE PROTEIN 30 mg/dL (<30 mg/dL); URINE UROBILINOGEN 0.2 E.U./dL (<1 E.U./dL)
[2017-07-30 21:39] LABS: URINE BACTERIA FEW (NEG); URINE CALCIUM OXALATE CRYSTALS FEW /hpf; URINE EPITHELIAL CELLS 0 - 2 /hpf (0-5); URINE RBC NEGATIVE /hpf (0-2); URINE WBC 0 - 2 /hpf (0-6)
--- NOTE | 2017-07-30 22:13 | CT ---
EXAM: CT Head Without Intravenous Contrast EXAM DATE/TIME: 07/30/2017 8:24 PM CLINICAL HISTORY: 26 years old, female; Signs and symptoms; Other: Seizure; Additional info: R/O ich TECHNIQUE: Axial computed tomography images of the head/brain without intravenous contrast. All CT scans at this facility use one or more dose reduction techniques, viz.: automated exposure control; ma/kV adjustment per patient size (including targeted exams where dose is matched to indication; i.e. head); or iterative reconstruction technique. Coronal and sagittal reformatted images were created and reviewed. COMPARISON: CT - HEAD W/O CONTRAST 2016-11-09 06:32 FINDINGS: No intracranial hemorrhage. No intracranial edema. No evidence of infarct. The sinuses and mastoid air cells are clear. IMPRESSION: No acute findings.
--- NOTE | 2017-07-30 23:25 | CP.PCM.HP ---
History of Present Illness - History of Present Illness History of Present Illness: CC: Seizures HPI: 26 year old female with past medical history that includes seizures who presents with witnessed seizure earlier this evening. Patient denies loss of urine, bowel, or biting of tongue. Patient reports mild confusion after onset for a few minutes and was able to recognize family members and location. Patient was brought to [facility] and evaluated in ED. Patient reports she has multiple seizures throughout day lasting 15-30 seconds, occurring at all times of day. Patient indicates she was previously being seen by a neurologist, Dr. Bacon for which she has not seen in a couple months due to insurance issues. Patient has her medication prescriptions refilled at [facility]. Patient has had previous work up for her seizure activity. She reports being consistent with her medication up until recently as she has been running low. Patient reports adequate sleep, appropriate diet and heightened stress according to patient. 12 point ROS is benign other than mentioned in HPI. ED course: Head CT done was negative for acute intracranial abnormalaties, UDS was negative, and without elevation of CK. PMH: Epilepsy PSH: Denies SOCHX: Tobacco: denies ETOH: denies ID: denies FMH: Mother: Thyroid disease ALL: NKDA MEDS: - Trileptal 600mg AM, 900mg PM - Topamax 100mg BID - Clonipine 1mg BID PMD: [facility] Neuro: Dr. Bacon Present on Admission - Present on Admission Any Indicators Present on Admission: No Review of Systems - Review of Systems All systems: reviewed and no additional remarkable complaints except (as mentioned in hpi) Past Patient History - Infectious Disease Hx of Infectious Diseases: None - Tetanus Immunizations Tetanus Immunization: Unknown - Past Medical History & Family History Past Medical History?: Yes - Past Social History Smoking Status: Never Smoked Alcohol: None Drugs: Denies - CARDIAC Hx Cardiac Disorders: No - PULMONARY Hx Respiratory Disorders: No - NEUROLOGICAL Hx Seizures: Yes Other/Comment: childhood epilepsy - HEENT Hx HEENT Problems: No - RENAL Hx Chronic Kidney Disease: No - ENDOCRINE/METABOLIC Hx Endocrine Disorders: No - HEMATOLOGICAL/ONCOLOGICAL Hx Blood Disorders: No - INTEGUMENTARY Hx Dermatological Problems: No - MUSCULOSKELETAL/RHEUMATOLOGICAL Hx Musculoskeletal Disorders: No - GASTROINTESTINAL Hx Gastrointestinal Disorders: No - GENITOURINARY/GYNECOLOGICAL Hx Genitourinary Disorders: No - PSYCHIATRIC Hx Psychophysiologic Disorder: No Hx Substance Use: No - SURGICAL HISTORY Hx Surgeries: No - ANESTHESIA Hx Anesthesia: No Hx Anesthesia Reactions: No Hx Malignant Hyperthermia: No Meds Allergies/Adverse Reactions: Allergies Allergy/AdvReac Type Severity Reaction Status Date / Time No Known Allergies Allergy Verified 03/22/17 19:46 Physical Exam - Constitutional Appears: Non-toxic, No Acute Distress - Head Exam Head Exam: ATRAUMATIC, NORMAL INSPECTION, NORMOCEPHALIC - Eye Exam Eye Exam: EOMI, PERRL - ENT Exam ENT Exam: Mucous Membranes Moist - Neck Exam Neck exam: Positive for: Full Rom - Respiratory Exam Respiratory Exam: Clear to Auscultation Bilateral, NORMAL BREATHING PATTERN. absent: Wheezes, Stridor - Cardiovascular Exam Cardiovascular Exam: REGULAR RHYTHM, +S1, +S2 - GI/Abdominal Exam GI & Abdominal Exam: Normal Bowel Sounds, Soft. absent: Tenderness - Extremities Exam Extremities exam: Positive for: normal capillary refill, pedal pulses present. Negative for: calf tenderness - Back Exam Back exam: NORMAL INSPECTION. absent: CVA tenderness (L), CVA tenderness (R) - Neurological Exam Neurological exam: Alert, CN II-XII Intact, Normal Gait, Oriented x3, Reflexes Normal - Psychiatric Exam Psychiatric exam: Normal Affect, Normal Mood - Skin Skin Exam: Dry, Warm Results - Vital Signs Recent Vital Signs: Last Vital Signs Temp 98.4 F 07/30/17 20:45 Pulse 94 H 07/30/17 20:45 Resp 18 07/30/17 20:45 BP 110/72 07/30/17 20:45 Pulse Ox 100 07/30/17 20:45 - Labs Result Diagrams: 07/30/17 20:20 07/30/17 20:20 Labs: Laboratory Results - last 24 hr 07/30/17 07/30/17 07/30/17 20:20 20:20 20:20 WBC 4.9 D RBC 4.06 Hgb 12.6 Hct 36.2 MCV 89.2 D MCH 31.0 MCHC 34.8 RDW 12.6 Plt Count 239 MPV 9.9 Gran % 60.8 Lymph % (Auto) 33.1 [place] % (Auto) 4.5 Eos % (Auto) 1.4 L Baso % (Auto) 0.2 Gran # 2.96 Lymph # (Auto) 1.6 [place] # (Auto) 0.2 Eos # (Auto) 0.1 Baso # (Auto) 0.01 Sodium 147 Potassium 3.6 Chloride 111 H Carbon Dioxide 22 Anion Gap 19 BUN 13 Creatinine 0.9 Est GFR ( Amer) > 60 Est GFR (Non-Af Amer) > 60 Random Glucose 116 H Calcium 9.3 Total Bilirubin 0.2 AST 25 ALT 24 Alkaline Phosphatase 69 Total Creatine Kinase 95 Total Protein 8.3 Albumin 4.8 Globulin 3.5 Albumin/Globulin Ratio 1.4 Urine Color Urine Appearance Urine pH Ur Specific [place] Urine Protein Urine Glucose (UA) Urine Ketones Urine Blood Urine Nitrate Urine Bilirubin Urine Urobilinogen Ur Leukocyte Esterase Urine RBC Urine WBC Ur Epithelial Cells Calcium Oxalate Crystal Urine Bacteria Urine Opiates Screen Urine Methadone Screen Ur Barbiturates Screen Ur Phencyclidine Scrn Ur Amphetamines Screen U Benzodiazepines Scrn U Oth Cocaine Metabols U Cannabinoids Screen Alcohol, Quantitative < 10 07/30/17 07/30/17 20:40 21:22 WBC RBC Hgb Hct MCV MCH MCHC RDW Plt Count MPV Gran % Lymph % (Auto) [place] % (Auto) Eos % (Auto) Baso % (Auto) Gran # Lymph # (Auto) [place] # (Auto) Eos # (Auto) Baso # (Auto) Sodium Potassium Chloride Carbon Dioxide Anion Gap BUN Creatinine Est GFR ( Amer) Est GFR (Non-Af Amer) Random Glucose Calcium Total Bilirubin AST ALT Alkaline Phosphatase Total Creatine Kinase Total Protein Albumin Globulin Albumin/Globulin Ratio Urine Color Yellow Urine Appearance Clear Urine pH 6.0 Ur Specific [place] >= 1.030 Urine Protein 30 H Urine Glucose (UA) Negative Urine Ketones Trace H Urine Blood Negative Urine Nitrate Negative Urine Bilirubin Negative Urine Urobilinogen 0.2 Ur Leukocyte Esterase Negative Urine RBC Negative Urine WBC 0 - 2 Ur Epithelial Cells 0 - 2 Calcium Oxalate Crystal Few Urine Bacteria Few Urine Opiates Screen Negative Urine Methadone Screen Negative Ur Barbiturates Screen Negative Ur Phencyclidine Scrn Negative Ur Amphetamines Screen Negative U Benzodiazepines Scrn Negative U Oth Cocaine Metabols Negative U Cannabinoids Screen Negative Alcohol, Quantitative Assessment & Plan - Assessment and Plan (Free Text) Assessment: A: 26 year old female with past medical history that includes seizures who presents with witnessed seizure earlier this evening. Patient with Head CT showing no acute intracranial abnormalities. Neurology consult placed, patient to be admitted for seizure like activity. P: Seizure - Previous work up in 10/2016, EEG - Patient reports previous workup, overnight EEG reported as frontotemporal seizure activity - Neuro checks Q4H - Head CT: No acute findings - Neurology Consult, Dr. Lowery - Seizure precaution - Ativan 2mg q2H prn GI/DVT ppx: - Pepcid - SCDs Case and plan discussed with attending - Date & Time Date: 07/31/17 Time: 00:19
--- NOTE | 2017-07-31 01:31 | ED PDOC ---
Arrival/HPI - General Chief Complaint: Seizure Time Seen by Provider: 07/30/17 20:03 Historian: Patient - History of Present Illness Narrative History of Present Illness (Text): 07/31/17 01:28 26 year old female, with a past medical history that includes epilepsy on medication (compliant), who presents to the emergency department complaining of multiple seizures. Patient notes she had 2 today. Patient states she experiences seizures daily. Patient hasn't seen her neurologist in several months. Patient denies any fever, chills, chest pain, shortness of breath, nausea, vomiting, diarrhea, back pain, neck pain, headache, dizziness, or any other complaints. Time/Duration: 24 hours Symptom Onset: Gradual Symptom Course: Unchanged Activities at Onset: Light Context: Home Past Medical History - Provider Review Nursing Documentation Reviewed: Yes - Infectious Disease Hx of Infectious Diseases: None - Tetanus Immunization Tetanus Immunization: Unknown - Past Medical History Past Medical History: No Previous - Cardiac Hx Cardiac Disorders: No - Pulmonary Hx Respiratory Disorders: No - Neurological Hx Seizures: Yes Other/Comment: childhood epilepsy - HEENT Hx HEENT Disorder: No - Renal Hx Renal Disorder: No - Endocrine/Metabolic Hx Endocrine Disorders: No - Hematological/Oncological Hx Blood Disorders: No - Integumentary Hx Dermatological Disorder: No - Musculoskeletal/Rheumatological Hx Musculoskeletal Disorders: No - Gastrointestinal Hx Gastrointestinal Disorders: No - Genitourinary/Gynecological Hx Genitourinary Disorders: No - Psychiatric Hx Psychophysiologic Disorder: No Hx Substance Use: No - Past Surgical History Past Surgical History: No Previous - Anesthesia Hx Anesthesia: No Hx Anesthesia Reactions: No Hx Malignant Hyperthermia: No - Suicidal Assessment Feels Threatened In Home Enviroment: No Family/Social History - Physician Review Nursing Documentation Reviewed: Yes Family/Social History: Unknown Family HX Smoking Status: Never Smoked Hx Alcohol Use: No Hx Substance Use: No Hx Substance Use Treatment: No Allergies/Home Meds Allergies/Adverse Reactions: Allergies No Known Allergies Allergy (Verified 03/22/17 19:46) Home Medications: Home Meds Medication Instructions Recorded Confirmed OXcarbazepine [Trileptal] 600 mg PO DAILY 03/22/17 07/30/17 OXcarbazepine [Trileptal] 900 mg PO HS 03/22/17 07/30/17 Topiramate [Topamax] 100 mg PO BID 03/22/17 07/30/17 clonazePAM [clonAZEPAM] 1 mg PO HS 03/22/17 07/30/17 Review of Systems - Physician Review All systems were reviewed & negative as marked: Yes - Review of Systems Constitutional: Normal Eyes: Normal ENT: Normal Respiratory: Normal. absent: SOB, Cough Cardiovascular: Normal. absent: Chest Pain Gastrointestinal: Normal. absent: Abdominal Pain, Diarrhea, Nausea, Vomiting Genitourinary Female: Normal. absent: Dysuria, Frequency, Hematuria, Urine Output Changes Musculoskeletal: Normal. absent: Back Pain, Neck Pain Skin: Normal. absent: Rash Neurological: Seizure Endocrine: Normal Hemo/Lymphatic: Normal Psychiatric: Normal Physical Exam Vital Signs Reviewed: Yes Vital Signs Temp Pulse Resp BP Pulse Ox 07/31/17 00:00 110 H 18 110/68 100 07/30/17 20:45 98.4 F 94 H 18 110/72 100 Temperature: Afebrile Blood Pressure: Normal Pulse: Tachycardic Respiratory Rate: Normal Appearance: Positive for: Well-Appearing, Non-Toxic, Comfortable Pain Distress: None Mental Status: Positive for: Alert and Oriented X 3 - Systems Exam Head: Present: Atraumatic, Normocephalic Pupils: Present: PERRL Extroacular Muscles: Present: EOMI Conjunctiva: Present: Normal Mouth: Present: Moist Mucous Membranes Neck: Present: Normal Range of Motion Respiratory/Chest: Present: Clear to Auscultation, Good Air Exchange. No: Respiratory Distress, Accessory Muscle Use Cardiovascular: Present: Regular Rate and Rhythm, Normal S1, S2. No: Murmurs Abdomen: No: Tenderness, Distention, Peritoneal Signs Back: Present: Normal Inspection Upper Extremity: Present: Normal Inspection. No: Cyanosis, Edema Lower Extremity: Present: Normal Inspection. No: Edema Neurological: Present: GCS=15, CN II-XII Intact, Speech Normal Skin: Present: Warm, Dry, Normal Color. No: Rashes Psychiatric: Present: Alert, Oriented x 3, Normal Insight, Normal Concentration Medical Decision Making ED Course and Treatment: 07/31/17 01:32 Impression: 26 year old female presents to the emergency department complaining of multiple seizures daily. Plan: -- Labs -- Chest X-ray -- CT Head -- Urinalysis -- Klonopin -- Pepicid -- Ativan -- Trileptal -- Topamax -- Reassess and disposition Progress Notes: CT Head reviewed, shows: No intracranial hemorrhage. No intracranial edema. No evidence of infarct. The sinuses and mastoid air cells are clear. IMPRESSION: No acute findings. EKG reviewed, shows Sinus at 85 bpm. Normal axis intervals. Case discussed with Hospitalist, who is aware and agrees with plan. Accepts patient into her service. Pt admitted to remote telemetry for further observation. - Lab Interpretations Lab Results: 07/30/17 20:20 07/30/17 20:20 Lab Results 07/30/17 21:22: Urine Color Yellow, Urine Appearance Clear, Urine pH 6.0, Ur Specific [place] >= 1.030, Urine Protein 30 H, Urine Glucose (UA) Negative, Urine Ketones Trace H, Urine Blood Negative, Urine Nitrate Negative, Urine Bilirubin Negative, Urine Urobilinogen 0.2, Ur Leukocyte Esterase Negative, Urine RBC Negative, Urine WBC 0 - 2, Ur Epithelial Cells 0 - 2, Calcium Oxalate Crystal Few, Urine Bacteria Few 07/30/17 20:40: Urine Opiates Screen Negative, Urine Methadone Screen Negative, Ur Barbiturates Screen Negative, Ur Phencyclidine Scrn Negative, Ur Amphetamines Screen Negative, U Benzodiazepines Scrn Negative, U Oth Cocaine Metabols Negative, U Cannabinoids Screen Negative 07/30/17 20:20: Alcohol, Quantitative < 10 07/30/17 20:20: Sodium 147, Potassium 3.6, Chloride 111 H, Carbon Dioxide 22, Anion Gap 19, BUN 13, Creatinine 0.9, Est GFR ( Amer) > 60, Est GFR (Non- Af Amer) > 60, Random Glucose 116 H, Calcium 9.3, Total Bilirubin 0.2, AST 25, ALT 24, Alkaline Phosphatase 69, Total Creatine Kinase 95, Total Protein 8.3, Albumin 4.8, Globulin 3.5, Albumin/Globulin Ratio 1.4 07/30/17 20:20: WBC 4.9 D, RBC 4.06, Hgb 12.6, Hct 36.2, MCV 89.2 D, MCH 31.0 , MCHC 34.8, RDW 12.6, Plt Count 239, MPV 9.9, Gran % 60.8, Lymph % (Auto) 33.1 , [place] % (Auto) 4.5, Eos % (Auto) 1.4 L, Baso % (Auto) 0.2, Gran # 2.96, Lymph # (Auto) 1.6, [place] # (Auto) 0.2, Eos # (Auto) 0.1, Baso # (Auto) 0.01 - RAD Interpretation Radiology Orders: 07/30/17 20:24 HEAD W/O CONTRAST [CT] Stat CHEST PORTABLE [RAD] Stat - Medication Orders Current Medication Orders: Clonazepam (Klonopin) 1 mg PO HS REX PRN Reason: Protocol Last Admin: 07/30/17 23:00 Dose: Famotidine (Pepcid) 20 mg PO BID REX Lorazepam (Ativan) 2 mg IVP Q4H PRN; Protocol PRN Reason: Seizure activity Oxcarbazepine (Trileptal) 900 mg PO HS REX Last Admin: 07/31/17 02:47 Dose: Not Given Non-Admin Reason: Patient Lethargic Topiramate (Topamax) 100 mg PO BID REX PRN Reason: Protocol - Scribe Statement The provider has reviewed the documentation as recorded by the Scribalbaro De La Rosa All medical record entries made by the Scribe were at my direction and personally dictated by me. I have reviewed the chart and agree that the record accurately reflects my personal performance of the history, physical exam, medical decision making, and the department course for this patient. I have also personally directed, reviewed, and agree with the discharge instructions and disposition. Disposition/Present on Arrival - Present on Arrival Any Indicators Present on Arrival: No History of DVT/PE: No History of Uncontrolled Diabetes: No Urinary Catheter: No History of Decub. Ulcer: No History Surgical Site Infection Following: None - Disposition Have Diagnosis and Disposition been Completed?: Yes Diagnosis: Seizure-like activity Disposition: HOSPITALIZED Disposition Time: 21:45 Condition: STABLE
[2017-07-31 02:24] VITALS: BMI 27.5
[2017-07-31 08:11] LABS: BASO # 0.01 K/mm3 (0.0-2.0); BASO % 0.2 % (0.0-3.0); EOS % 0.5 % (1.5-5.0); GRAN # 4.31 (1.4-6.5); GRAN % 67.8 % (50.0-68.0); HEMOGLOBIN 11.9 g/dL (12.0-16.0); LYMPH # 1.6 (1.2-3.4); LYMPH % 25.4 % (22.0-35.0); MEAN CELL VOLUME 89.3 fl (80.0-105.0); MEAN CORPUSCULAR HEMOGLOBIN 30.4 pg (25.0-35.0); MEAN PLATELET VOLUME 9.6 fl (7.0-11.0); MONO # 0.4 (0.1-0.6); MONO % 6.1 % (1.0-6.0); RBC 3.92 10^6/uL (3.5-6.1); RED CELL DISTRIBUTION WIDTH 12.9 % (11.5-14.5); WHITE BLOOD COUNT 6.4 10^3/ul (4.5-11.0)
[2017-07-31 08:19] LABS: ALB/GLOB RATIO 1.3 (1.1-1.8); ALBUMIN 4.4 g/dL (3.0-4.8); ALT/SGPT 27 U/L (7-56); AST/SGOT 28 U/L (14-36); BLOOD UREA NITROGEN 16 mg/dL (7-21); CALCIUM 9.1 mg/dL (8.4-10.5); GFR AFRICAN-AMERICAN > 60; GFR NON-AFRICAN AMERICAN > 60
--- NOTE | 2017-07-31 09:51 | RAD ---
HISTORY: r/o infiltrate COMPARISON: No prior. FINDINGS: LUNGS: No active pulmonary disease. PLEURA: No significant pleural effusion identified, no pneumothorax apparent. CARDIOVASCULAR: Normal. OSSEOUS STRUCTURES: No significant abnormalities. VISUALIZED UPPER ABDOMEN: Normal. OTHER FINDINGS: None. IMPRESSION: No active disease.
--- NOTE | 2017-07-31 11:51 | CP.PCM.PN ---
<Erick Cordova - Last Filed: 07/31/17 12:10> Subjective - Date & Time of Evaluation Date of Evaluation: 07/31/17 Time of Evaluation: 08:00 - Subjective Subjective: PGY1 Medicine Note for Dr. Zelaya Patient seen and evaluated at bedside. No acute events overnight. Patient states she is feeling well and has not had any seizures since yesterday. She is resting comfortably in bed with no complaints at this time. Denies fevers, chills, nausea, vomiting, diarrhea, constipation, chest pain, shortness of breath, palpitations, abdominal pain, headaches, vision changes, tremors, numbness, tingling or seizure-like activity. Objective - Vital Signs/Intake and Output Vital Signs (last 24 hours): Temp Pulse Resp BP Pulse Ox 97 F L 65 18 106/60 100 07/31/17 11:31 07/31/17 11:31 07/31/17 11:31 07/31/17 11:31 07/31/17 00:40 Intake and Output: 07/31/17 07/31/17 06:59 18:59 Intake Total 0 Balance 0 - Medications Medications: Current Medications Clonazepam (Klonopin) 1 mg PO HS [facility] PRN Reason: Protocol Last Admin: 07/30/17 23:00 Dose: Not Given Famotidine (Pepcid) 20 mg PO BID [facility] Last Admin: 07/31/17 09:09 Dose: 20 mg Lorazepam (Ativan) 2 mg IVP Q4H PRN; Protocol PRN Reason: Seizure activity Oxcarbazepine (Trileptal) 900 mg PO [facility] Last Admin: 07/31/17 09:10 Dose: 900 mg Topiramate (Topamax) 100 mg PO BID [facility] PRN Reason: Protocol Last Admin: 07/31/17 09:09 Dose: 100 mg - Labs Labs: 07/31/17 07:30 07/31/17 07:30 - Constitutional Appears: Non-toxic, No Acute Distress - Head Exam Head Exam: ATRAUMATIC, NORMOCEPHALIC - Eye Exam Eye Exam: EOMI, Normal appearance Pupil Exam: NORMAL ACCOMODATION - ENT Exam ENT Exam: Mucous Membranes Moist, Normal Exam Additional comments: no tongue biting. - Neck Exam Neck Exam: Full ROM. absent: Lymphadenopathy - Respiratory Exam Respiratory Exam: Clear to Ausculation Bilateral, NORMAL BREATHING PATTERN. absent: Accessory Muscle Use, Rales, Rhonchi, Wheezes, Respiratory Distress - Cardiovascular Exam Cardiovascular Exam: REGULAR RHYTHM, +S1 - GI/Abdominal Exam GI & Abdominal Exam: Soft, Normal Bowel Sounds. absent: Distended, Firm, Guarding, Rigid, Tenderness - Neurological Exam Neurological Exam: Alert, Awake, CN II-XII Intact, Oriented x3 - Psychiatric Exam Psychiatric exam: Normal Affect, Normal Mood - Skin Skin Exam: Dry, Normal Color, Warm Assessment and Plan - Assessment and Plan (Free Text) Assessment: 26 year old female with past medical history that includes seizures who presents with witnessed seizure earlier this evening. Patient with Head CT showing no acute intracranial abnormalities. Neurology consult placed, patient to be admitted for seizure like activity. Plan: Seizure Neurology consulted, Dr. Lowery - Help appreciated Head CT - No acute findings. Previous Brain MRI 11/10/16 - Multiple scattered, tiny foci of signal abnormality in the white matter bilaterally. In a patient of this age, the primary differential considerations include demyelinating disease, such as multiple sclerosis, and Lyme disease. Other white matter diseases are not excluded. Neuro checks Q4H Seizure precaution Ativan 2mg Q2H prn Continue home meds - Klonopin 1mg PO HS - Trileptal 900mg PO HS - Topamax 100mg PO BID Prophylactic Care Pepcid SCDs Case Discussed with Dr. Garcia Suarez Tasha PGY1 <Otilia Zelaya - Last Filed: 07/31/17 15:19> Objective - Vital Signs/Intake and Output Vital Signs (last 24 hours): Temp Pulse Resp BP Pulse Ox 97 F L 100 H 18 106/60 100 07/31/17 11:31 07/31/17 14:00 07/31/17 11:31 07/31/17 11:31 07/31/17 00:40 - Medications Medications: Current Medications Clonazepam (Klonopin) 1 mg PO HS [facility] PRN Reason: Protocol Last Admin: 07/30/17 23:00 Dose: Not Given Famotidine (Pepcid) 20 mg PO BID [facility] Last Admin: 07/31/17 09:09 Dose: 20 mg Lorazepam (Ativan) 2 mg IVP Q4H PRN; Protocol PRN Reason: Seizure activity Oxcarbazepine (Trileptal) 900 mg PO HS [facility] Last Admin: 07/31/17 09:10 Dose: 900 mg Topiramate (Topamax) 100 mg PO BID [facility] PRN Reason: Protocol Last Admin: 07/31/17 09:09 Dose: 100 mg Attending/Attestation - Attestation I have personally seen and examined this patient.: Yes I have fully participated in the care of the patient.: Yes I have reviewed all pertinent clinical information, including history, physical exam and plan: Yes Notes (Text): 07/31/17 15:14 Attending note; Patient seen and examined with resident. Patient is a 26 year old female with past medical history that includes seizures who presents with witnessed seizure. No tongue bite or urinary incontinence. Currently no active seizure. Tolerating diet. CT head is negative. Patient follows up with [place] [facility]. Patient takes Trileptal and Topamax. Will follow up with neurology. Patient does not drive. Needs close follow-up with neurology as outpatient. Upon discharge the patient will be referred to [facility] clinic.
--- NOTE | 2017-07-31 16:54 | CP.PCM.CON ---
History of Present Illness - History of Present Illness History of Present Illness: 26 yr old woman who has known frontal lobe epilepsy and is a patient of with [facility], with a history of epilepsy for many years, and now being evaluated with [facility], and has had video EEG. It is not clear if her video eeg captured seizures, but she is on topamax, and trileptal and has been on these medications for many years. She is also on klonopin daily, and takes them for breakthrough seizures. Yesterday, she presented with a generalized seizure that occurs once every 2 months, and is preceded by a feeling of confusion or electric sensation. She has daily auras, and has not had any allergies to any antiepileptic medications. PMH/PSH: normal, IUTD, normal development. FH/SH: , no children. All: nkda. On exam: AAOx3. Pupils 3mm-2mm with light. EOMI. CN 2-12 normal. motor: strength normal. Sensory: intact ft, pin, position sense Cerebellar: f/n no dysmetria, gait normal. + 2dtr ul and ll bl. Toes downgoing. No clonus. Past Patient History - Infectious Disease Hx of Infectious Diseases: None - Tetanus Immunizations Tetanus Immunization: Unknown - Past Medical History & Family History Past Medical History?: Yes - Past Social History Smoking Status: Never Smoked - CARDIAC Hx Cardiac Disorders: No - PULMONARY Hx Respiratory Disorders: No - NEUROLOGICAL Hx Seizures: Yes Other/Comment: childhood epilepsy - HEENT Hx HEENT Problems: No - RENAL Hx Chronic Kidney Disease: No - ENDOCRINE/METABOLIC Hx Endocrine Disorders: No - HEMATOLOGICAL/ONCOLOGICAL Hx Blood Disorders: No - INTEGUMENTARY Hx Dermatological Problems: No - MUSCULOSKELETAL/RHEUMATOLOGICAL Hx Musculoskeletal Disorders: No - GASTROINTESTINAL Hx Gastrointestinal Disorders: No - GENITOURINARY/GYNECOLOGICAL Hx Genitourinary Disorders: No - PSYCHIATRIC Hx Psychophysiologic Disorder: No Hx Substance Use: No - SURGICAL HISTORY Hx Surgeries: No - ANESTHESIA Hx Anesthesia: No Hx Anesthesia Reactions: No Hx Malignant Hyperthermia: No Meds Allergies/Adverse Reactions: Allergies Allergy/AdvReac Type Severity Reaction Status Date / Time No Known Allergies Allergy Verified 03/22/17 19:46 - Medications Medications: Current Medications Clonazepam (Klonopin) 1 mg PO HS [facility] PRN Reason: Protocol Last Admin: 07/30/17 23:00 Dose: Not Given Famotidine (Pepcid) 20 mg PO BID [facility] Last Admin: 07/31/17 09:09 Dose: 20 mg Lorazepam (Ativan) 2 mg IVP Q4H PRN; Protocol PRN Reason: Seizure activity Oxcarbazepine (Trileptal) 900 mg PO HS [facility] Last Admin: 07/31/17 09:10 Dose: 900 mg Topiramate (Topamax) 100 mg PO BID [facility] PRN Reason: Protocol Last Admin: 07/31/17 09:09 Dose: 100 mg Results - Vital Signs Recent Vital Signs: Last Vital Signs Temp 97 F L 07/31/17 11:31 Pulse 100 H 07/31/17 14:00 Resp 18 07/31/17 11:31 BP 106/60 07/31/17 11:31 Pulse Ox 100 07/31/17 00:40 - Labs Result Diagrams: 07/31/17 07:30 07/31/17 07:30 Assessment & Plan - Assessment and Plan (Free Text) Assessment: 26 yr old woman with frontal lobe epilepsy who is now having breakthrough seizures, and I feel, needs to be on higher doses of medications. I will increase her trileptal to 600 mg bid, and continue on topamax 100 mg bid. We will also obtain EEG on wednesday and MRI Brain with contrast. She will also need her level checked. THank you dr ching
--- NOTE | 2017-08-01 06:34 | CP.PCM.PN ---
Subjective - Date & Time of Evaluation Date of Evaluation: 08/01/17 Time of Evaluation: 06:33 - Subjective Subjective: Ms. Hodges was seen and examined at the bedside. She is alert, oriented in all spheres. She denies any headache, blurred vision, confusion, lightheadedness, nausea, or vomiting. She is able to follow simple commands. She further claims of experiencing seizure activity last night which the staff claims that the patient had an uneventful night and was able to ambulate several times to and from the bathroom. There was no untoward events overnight. Objective - Vital Signs/Intake and Output Vital Signs (last 24 hours): Temp Pulse Resp BP Pulse Ox 98.4 F 78 22 91/60 L 98 08/01/17 06:00 08/01/17 06:00 08/01/17 06:00 08/01/17 06:00 08/01/17 06:00 Intake and Output: 07/31/17 08/01/17 18:59 06:59 Intake Total 240 Output Total 500 Balance -260 - Medications Medications: Current Medications Clonazepam (Klonopin) 1 mg PO HS [facility] PRN Reason: Protocol Last Admin: 07/31/17 22:01 Dose: 1 mg Famotidine (Pepcid) 20 mg PO BID [facility] Last Admin: 07/31/17 17:06 Dose: 20 mg Lorazepam (Ativan) 2 mg IVP Q4H PRN; Protocol PRN Reason: Seizure activity Oxcarbazepine (Trileptal) 600 mg PO BID [facility] PRN Reason: Protocol Topiramate (Topamax) 100 mg PO BID [facility] PRN Reason: Protocol Last Admin: 07/31/17 17:06 Dose: 100 mg - Constitutional Appears: No Acute Distress - Head Exam Head Exam: NORMAL INSPECTION - Eye Exam Pupil Exam: NORMAL ACCOMODATION, PERRL - Neurological Exam Neurological Exam: Alert, Awake, Oriented x3 Neuro motor strength exam: Left Upper Extremity: 5, Right Upper Extremity: 5, Left Lower Extremity: 5, Right Lower Extremity: 5 Additional comments: Alert, oriented x3, follows commands. Assessment and Plan (1) Seizure Assessment & Plan: Case discussed with Dr. Lowery, continue all current medical regimen. Recommend MRI of the brain without contrast, EEG, and trileptal level. Recommend increasing PO fluid intake to maintain hydration. Status: Acute
--- NOTE | 2017-08-01 09:10 | CP.PCM.PN ---
<Erick Cordova - Last Filed: 08/01/17 09:31> Subjective - Date & Time of Evaluation Date of Evaluation: 08/01/17 Time of Evaluation: 07:25 - Subjective Subjective: PGY1 Medicine Note for Dr. Zelaya Patient seen and evaluated at bedside. No acute events overnight. Patient did not have any seizure activity over night, but had SUPER[employer] SPLITTING called for seizure this morning at approximately 9:15a. See [employer]ITT[employer] note for complete detail. Patient had no post-ictal state and said she felt fine. When patient was seen this morning, she was resting comfortably and had no complaints. She Denies fevers, chills, nausea, vomiting, diarrhea, constipation, chest pain, shortness of breath, palpitations, abdominal pain, headaches, vision changes, tremors, numbness, tingling or seizure-like activity. Objective - Vital Signs/Intake and Output Vital Signs (last 24 hours): Temp Pulse Resp BP Pulse Ox 98.4 F 78 22 91/60 L 98 08/01/17 06:00 08/01/17 06:00 08/01/17 06:00 08/01/17 06:00 08/01/17 06:00 Intake and Output: 08/01/17 08/01/17 06:59 18:59 Intake Total 240 Output Total 500 Balance -260 - Medications Medications: Current Medications Clonazepam (Klonopin) 1 mg PO HS [facility] PRN Reason: Protocol Last Admin: 07/31/17 22:01 Dose: 1 mg Famotidine (Pepcid) 20 mg PO BID [facility] Last Admin: 07/31/17 17:06 Dose: 20 mg Lorazepam (Ativan) 2 mg IVP Q4H PRN; Protocol PRN Reason: Seizure activity Oxcarbazepine (Trileptal) 600 mg PO BID [facility] PRN Reason: Protocol Topiramate (Topamax) 100 mg PO BID [facility] PRN Reason: Protocol Last Admin: 07/31/17 17:06 Dose: 100 mg - Constitutional Appears: Non-toxic, No Acute Distress - Head Exam Head Exam: ATRAUMATIC, NORMOCEPHALIC - Eye Exam Eye Exam: EOMI, Normal appearance - ENT Exam ENT Exam: Mucous Membranes Moist - Neck Exam Neck Exam: absent: Lymphadenopathy, Tenderness - Respiratory Exam Respiratory Exam: Clear to Ausculation Bilateral, NORMAL BREATHING PATTERN. absent: Accessory Muscle Use, Rales, Rhonchi, Wheezes, Respiratory Distress - Cardiovascular Exam Cardiovascular Exam: REGULAR RHYTHM, +S1, +S2 - GI/Abdominal Exam GI & Abdominal Exam: Soft, Normal Bowel Sounds. absent: Distended, Firm, Guarding, Rigid, Tenderness - Extremities Exam Extremities Exam: Normal Inspection. absent: Calf Tenderness, Pedal Edema - Neurological Exam Neurological Exam: Alert, Awake, CN II-XII Intact, Oriented x3 Neuro motor strength exam: Left Upper Extremity: 5, Right Upper Extremity: 5, Left Lower Extremity: 5, Right Lower Extremity: 5 - Psychiatric Exam Psychiatric exam: Normal Affect, Normal Mood - Skin Skin Exam: Dry, Warm Assessment and Plan - Assessment and Plan (Free Text) Assessment: 26 year old female with past medical history that includes seizures who presents with witnessed seizure earlier this evening. Patient with Head CT showing no acute intracranial abnormalities. Neurology consult placed, patient to be admitted for seizure like activity. Plan: Patient had [employer] called this morning for seizure. Please see [employer]PER[employer]ITT[employer] note for complete detail. Short summary of events, patient was in bathroom when she call nurse Dubon for help. Nurse quickly went to help when she saw patient attempting to lower herself onto floor. Patient dropped to floor as nurse approached and became stiff (arms in extension, no tonic clonic movements noted) and unable to speak. Patient was stiff for less than a minute and quickly stated that she was fine and was able to walk to bed with assistance. No post-ictal state was noted. No loss of bowels or tongue biting. Patient had no residual effects from seizure (weakness, confusion or paralysis). MRI, prolactic and 1 mg of ativan ordered stat. Seizure Neurology consulted, Dr. Lowery - Help appreciated Head CT - No acute findings. Previous Brain MRI 11/10/16 - Multiple scattered, tiny foci of signal abnormality in the white matter bilaterally. In a patient of this age, the primary differential considerations include demyelinating disease, such as multiple sclerosis, and Lyme disease. Other white matter diseases are not excluded. Brain MRI - f/u results EEG - f/u Prolactic - f/u Neuro checks Q4H Seizure precaution Ativan 2mg Q2H prn Continue home meds - Klonopin 1mg PO HS - Trileptal 600mg PO BID - Topamax 100mg PO BID Prophylactic Care Pepcid - 20 mg PO BID SCDs Case Discussed with Dr. Garcia Suarez Tasha PGY1 <Otilia Zelaya - Last Filed: 08/01/17 10:46> Objective - Vital Signs/Intake and Output Vital Signs (last 24 hours): Temp Pulse Resp BP Pulse Ox 98.4 F 78 22 91/60 L 98 08/01/17 06:00 08/01/17 06:00 08/01/17 06:00 08/01/17 06:00 08/01/17 06:00 Intake and Output: 08/01/17 08/01/17 06:59 18:59 Intake Total 240 Output Total 500 Balance -260 - Medications Medications: Current Medications Clonazepam (Klonopin) 1 mg PO HS [facility] PRN Reason: Protocol Last Admin: 07/31/17 22:01 Dose: 1 mg Famotidine (Pepcid) 20 mg PO BID [facility] Last Admin: 08/01/17 10:32 Dose: 20 mg Lorazepam (Ativan) 2 mg IVP Q4H PRN; Protocol PRN Reason: Seizure activity Oxcarbazepine (Trileptal) 600 mg PO BID [facility] PRN Reason: Protocol Last Admin: 08/01/17 10:33 Dose: 600 mg Topiramate (Topamax) 100 mg PO BID [facility] PRN Reason: Protocol Last Admin: 08/01/17 10:32 Dose: 100 mg Attending/Attestation - Attestation I have personally seen and examined this patient.: Yes I have fully participated in the care of the patient.: Yes I have reviewed all pertinent clinical information, including history, physical exam and plan: Yes Notes (Text): 08/01/17 10:45 Attending note; Patient seen and examined with resident. Patient is a 26 year old female with past medical history that includes seizures who presents with witnessed seizure. No tongue bite or urinary incontinence. Currently no active seizure. Tolerating diet. CT head is negative. Compliance of medication is in question. Patient has insurance problems. Patient follows up with [place] [facility]. Patient takes Trileptal and Topamax. Neurology evaluation appreciated. Trileptal dosage increased. Patient needs to follow up with [place] neurology. Patient does not drive. Needs close follow-up with neurology as outpatient. Upon discharge the patient will be referred to [facility].
--- NOTE | 2017-08-01 09:21 | PCM.RRT ---
I.Reason for MECHANICAL SYSTEMS ENGINEER - A) Acute Change in Patient: (Select all that apply): Staff member or family is worried about patient ( witnessed seizure) - Neurological Status (Select all that apply): Alert, Responsive, Oriented, Verbal, Follows Commands. absent: Disoriented, Confused, Lethargic, Weakness - Constitutional Appears: Well, No Acute Distress - Head Head Exam: ATRAUMATIC, NORMOCEPHALIC - Eyes Eye Exam: EOMI, Normal appearance, PERRL - Respiratory Exam Respiratory Exam: Clear to Ausculation Bilateral, NORMAL BREATHING PATTERN. absent: Accessory Muscle Use, Chest Wall Tenderness, Rales, Rhonchi, Wheezes, Respiratory Distress - Cardiovascular Exam Cardiovascular Exam: REGULAR RHYTHM, +S1, +S2 - GI/Abdominal Exam GI & Abdominal Exam: Soft, Normal Bowel Sounds. absent: Distended, Firm, Guarding, Rigid, Tenderness - Neurological Exam Neurological Exam: Alert, Awake, CN II-XII Intact, Oriented x3. absent: Altered , Motor Sensory Deficit - Extremities Exam Extremities Exam: absent: Calf Tenderness, Pedal Edema
--- NOTE | 2017-08-01 09:28 | PCM.RRT ---
<Haley Goff - Last Filed: 08/01/17 11:02> SALES AND MARKETING ENGINEER Nurse Assessment - Situation Date: 08/01/17 Time SALES AND MARKETING ENGINEER was called: 09:06 SALES AND MARKETING ENGINEER Responder Arrival Time: 09:07 SALES AND MARKETING ENGINEER Location:: [address] [place] [address] Room Number: [id number] SALES AND MARKETING ENGINEER Called By: RN - IV IV Inserted during SALES AND MARKETING ENGINEER?: No - Respiratory Oxygen Delivery Method: Room Air - Vital Signs Vital Sign: T: 98.9. HR 110. RR 18. 115/72. O2 98RA. - Finger Stick Blood Glucose Finger Stick Blood Glucose: 131 I.Reason for SALES AND MARKETING ENGINEER - A) Acute Change in Patient: Subjective: PGY-[address] Zelaya CC: seizure and fall Ms Hodges, 26 F, with PMH seizures but not taking med recently due to lost of insurance admitted for witnessed seizure. Patient follows up with [place] [facility]. Patient takes Trileptal and Topamax. She received clonazepam 1mg last night, Topamax 100 bid last night, and trileptal 900 HS last night. The trileptal was increased to 600 BID today but not taken it today Pt went to bathroom, felt vibration all over her body, fell and landed on L hip. No hitting of head. Then RN came and saw pt on the floor. RN said that pt "stiffed up" with eyes open. At that moment, pt was already on the floor. RN said that the stiffness lasted less than 1 min. Per RN, pt states, "I m ok now. " Pt denies not losing consciouness. No palpitation, no CP, SOB, N/V. No tongue bit. No urinary incontinence - Neurological Status (Select all that apply): Alert, Responsive, Oriented, Verbal, Follows Commands - Constitutional Appears: No Acute Distress - Head Head Exam: ATRAUMATIC, NORMAL INSPECTION, NORMOCEPHALIC Additional Comments: No tongue bite - Eyes Eye Exam: EOMI, Normal appearance, PERRL. absent: Scleral icterus - Respiratory Exam Respiratory Exam: Clear to Ausculation Bilateral. absent: Rales, Rhonchi, Wheezes - Cardiovascular Exam Cardiovascular Exam: REGULAR RHYTHM, +S1, +S2 - GI/Abdominal Exam GI & Abdominal Exam: Soft. absent: Guarding, Rigid, Tenderness - Neurological Exam Neurological Exam: Alert, Awake, Oriented x3 Additional exam: No slurr speech Sensory intact move all extremities equally - Extremities Exam Extremities Exam: Normal Capillary Refill. absent: Calf Tenderness, Pedal Edema Additional comments: No laceration/bruises. No spinal tenderness, no step down in spine. mild tenderness of L shoulder No urinary incontinence No tongue bite Plan - Assessment of Findings&Treatment Plan Breakthrough Seizure Fall - NPO - MRI head - 1 ativan given - continue seizure precaution - change trileptal and topamax to 0700, 1900, per Dr Lowery - Communicated with Dr Lowery, who will contact Dr. Bacon, to have pt visit his office tomorrow: [address], [place] - Communicated with pt re: taking Antiepileptic meds at 0700, 1900 sharp and not to skip/delay. - notified potential discharge 8AM tomorrow. Pt mom will pick pt up and drive to neurologist office s/r/d/w Dr Zelaya <Otilia Zelaya - Last Filed: 08/01/17 13:22> SALES AND MARKETING ENGINEER Nurse Assessment - Vital Signs Vital Sign: Rapid Response Vital Sign Blood Pressure 115/72 Pulse Rate 110 Respiratory Rate 18 Temperature 98.9 F Oxygen Saturation 98 - Vital Signs at end of SALES AND MARKETING ENGINEER Vital Signs at end of SALES AND MARKETING ENGINEER: Rapid Response End Vital Sign Blood Pressure 108/71 Pulse Rate 79 Respiratory Rate 18 Temperature 98.9 F O2 Sat by Pulse Oximetry 98 Attending/Attestation - Attestation I have personally seen and examined this patient.: Yes I have fully participated in the care of the patient.: Yes I have reviewed all pertinent clinical information, including history, physical exam and plan: Yes Notes (Text): 08/01/17 13:20 Patient seen and examined during rapid response. Patient apparently had some aura and stiffening of the hands. Patient was on the floor. No injury noted. No postictal state. No tongue bite. No urinary incontinence. Case discussed with neurologist in detail. Medication dosage and timing adjusted. Patient will be referred to Dr. Bacon. possible discharge tomorrow.
[2017-08-01] MEDS ORDERED: Gadodiamide 287 MG/ML VIAL (15ML) IV ONE (09:57)
[2017-08-01 12:07] VITALS: RESP 20
--- NOTE | 2017-08-01 13:01 | CARD ---
APPROVED REPORT EKG Measurement Heart [id number] <Conclusion> Normal sinus rhythm Normal ECG
--- NOTE | 2017-08-01 13:06 | MRI ---
PROCEDURE: MRI BRAIN WITH AND WITHOUT CONTRAST HISTORY: Recurrent seizure. COMPARISON: Comparison made with CT scan of the brain and MRI of the brain dated 07/31/2027 the an 11/10/2016 respectively. TECHNIQUE: Multiplanar, multisequence MR images of the brain were obtained with and without intravenous contrast enhancement. FINDINGS: HEMORRHAGE: No acute parenchymal, subarachnoid nor extra-axial hemorrhage. No evidence of hemosiderin deposition seen on gradient echo weighted sequence. DWI: No evidence of an acute or early subacute infarction seen on diffusion imaging. BRAIN PARENCHYMA: There appears to be a localized somewhat linear area of nonenhancing increased T2 signal involving the cortex - dagoberto subcortical region of the left parietal operculum at the level of the posterior margin of the sylvian fissure best seen on axial FLAIR sequence 5 image number 17 and coronal FLAIR sequence series 9, image number 12 and 13. This lesion does not exhibit restricted diffusion Differential diagnosis would include nonspecific cortical edema or inflammation or infection such as localized encephalitis. . No restricted diffusion is identified to suggest ischemia. Rule out vasculitis or nonspecific encephalitis. The possibility of an atypical demyelinating. Correlation with EEG to localize site and or side of ictus-irritating focus. Consider repeat study on a 3T MRI which will provide better spatial resolution. Re- demonstrated are a few small focal nonenhancing nonspecific areas of increased T2 signal scattered about deep and subcortical white matter both cerebral hemispheres. Changes are of uncertain etiology though differential diagnosis would include sequela of migraine headache Ventricular and sulcal size are within range of normal for this patient's stated age. ENHANCEMENT: No abnormal intracranial enhancement. VENTRICLES: No obstructive hydrocephalus. CRANIUM: Unremarkable. ORBITS: Grossly unremarkable. PARANASAL SINUSES/MASTOIDS: Clear VASCULAR SYSTEM: Visualized major vascular flow voids at skull base patent. Go the OTHER FINDINGS: None . IMPRESSION: There appears to be a localized somewhat linear area of nonenhancing increased T2 signal involving the cortex - dagoberto subcortical region of the left parietal operculum at the level of the posterior margin of the sylvian fissure best seen on axial FLAIR sequence 5 image number 17 and coronal FLAIR sequence series 9, image number 12 and 13. This lesion does not exhibit restricted diffusion Differential diagnosis would include nonspecific cortical edema or inflammation or infection such as localized encephalitis. . No restricted diffusion is identified to suggest ischemia. Rule out vasculitis or nonspecific encephalitis. The possibility of an atypical demyelinating. Correlation with EEG to localize site and or side of ictus - irritating focus. Consider repeat study on a 3T MRI which will provide better spatial resolution. Re- demonstrated are a few small focal nonenhancing nonspecific areas of increased T2 signal scattered about deep and subcortical white matter both cerebral hemispheres. Changes are of uncertain etiology though differential diagnosis would include sequela of migraine headache Ventricular and sulcal size are within range of normal for this patient's stated age.
[2017-08-02 06:28] VITALS: O2SAT 95
--- NOTE | 2017-08-02 08:28 | CP.PCM.PN ---
Subjective - Date & Time of Evaluation Date of Evaluation: 08/02/17 Time of Evaluation: 08:15 - Subjective Subjective: PGY2 Neuro Progress note for Dr. Lowery Patient seen and examined at bedside eating his breakfast. She reported having 2 seizures this AM. Patient states she has an aura that feels like a "shot of electricity" throughout her body. Nursing did not report these seizures. She complained of some nausea this AM but denied any fever, chills, headache, dizziness, chest pain, palpitations, SOB, cough, abd pain, vomiting, bowel/ bladder complaints, pain/swelling in his legs bilaterally. Objective - Vital Signs/Intake and Output Vital Signs (last 24 hours): Temp Pulse Resp BP Pulse Ox 97.7 F 62 20 92/61 L 95 08/02/17 06:00 08/02/17 06:00 08/02/17 06:00 08/02/17 06:00 08/02/17 06:00 Intake and Output: 08/02/17 08/02/17 06:59 18:59 Intake Total 240 Balance 240 - Medications Medications: Current Medications Clonazepam (Klonopin) 1 mg PO HS REX PRN Reason: Protocol Last Admin: 08/01/17 21:49 Dose: 1 mg Famotidine (Pepcid) 20 mg PO BID [facility] Last Admin: 08/01/17 18:28 Dose: 20 mg Lorazepam (Ativan) 1 mg IVP Q4H PRN; Protocol PRN Reason: Seizure activity Oxcarbazepine (Trileptal) 600 mg PO 0700,1900 [facility] PRN Reason: Protocol Last Admin: 08/02/17 06:07 Dose: 600 mg Topiramate (Topamax) 100 mg PO 0700,1900 [facility] PRN Reason: Protocol Last Admin: 08/02/17 06:06 Dose: 100 mg - Constitutional Appears: Non-toxic, No Acute Distress - Head Exam Head Exam: ATRAUMATIC, NORMAL INSPECTION, NORMOCEPHALIC - Eye Exam Eye Exam: Conjunctival injection, EOMI, Normal appearance, PERRL. absent: Scleral icterus Pupil Exam: PERRL - ENT Exam ENT Exam: Mucous Membranes Moist - Neck Exam Neck Exam: Full ROM - Respiratory Exam Respiratory Exam: NORMAL BREATHING PATTERN. absent: Accessory Muscle Use, Respiratory Distress - Cardiovascular Exam Cardiovascular Exam: +S1, +S2 - Extremities Exam Extremities Exam: Normal Capillary Refill, Normal Inspection - Neurological Exam Neurological Exam: Alert, Awake, CN II-XII Intact, Oriented x3 - Psychiatric Exam Psychiatric exam: Normal Affect, Normal Mood Additional comments: reserved - Skin Skin Exam: Dry, Intact, Normal Color, Warm Assessment and Plan - Assessment and Plan (Free Text) Assessment: 26yo female PMHx seizures presented with uncontrolled seizures. Plan: -Head CT: unremarkable -Brain MRI 08/01/17: localized somewhat linear area of nonenhancing increased T2 signal involving the cortex- dagoberto subcortical region of the left parietal operculum at the level of the posterior margin of the sylvian fissure best seen on axial FLAIR sequence 5 image 17 and coronal FLAIR series 9 image 12 and 13. This lesion does not exhibit restricted diffusion. Diff dx would include nonspecific cortical edema or inflammation or infection such as localized encephalitis. No restricted diffusion is identified to suggest ischemia. Rule out vasculitis or nonspecific encephalitis. The possibility of an atypical demyelinating. Correlation with EEG to localize site and or dise of ictus- irritating focus. Consider repeat study on a 3T MRI which will provide better spatial resolution. Re-demonstrated are a few small focal nonenhancing nonspecific areas of increased T2 signal scattered about deep and subcortical white matter both hemispheres. Changes are of uncertain etiology through differential diagnosis would include sequela of migraine headache. ventricular and sulcal size are within range of normal for this patient's stated age. -Brain MRI 11/10/16: Multiple scattered, tiny foci of signal abnormality in the white matter bilaterally. In a patient of this age, the primary differential considerations include demyelinating disease, such as multiple sclerosis, and Lyme disease. Other white matter diseases are not excluded. -continue Trileptal 600mg PO BID at 7am and 7pm -continue Topamax 100mg PO BID at 7am and 7pm -recommend hydration and good sleep hygiene -f/u EEG and trileptal level Discussed with Dr. Sebastián Fernandez PGY2
--- NOTE | 2017-08-02 12:26 | CP.PCM.DIS ---
<DenverHaley - Last Filed: 08/02/17 12:32> Provider - Provider Date of Admission: 07/31/17 14:06 Attending physician: Dana Sanford MD Primary care physician: [facility] Neurologist: Dr Bacon Consults: Neurologist: Dr Lowery Time Spent in preparation of Discharge (in minutes): 60 Diagnosis - Discharge Diagnosis (1) Seizures Status: Acute Hospital Course - Lab Results Lab Results: Most Recent Lab Values WBC 6.4 10^3/ul (4.5-11.0) D 07/31/17 07:30 RBC 3.92 10^6/uL (3.5-6.1) 07/31/17 07:30 Hgb 11.9 g/dL (12.0-16.0) L 07/31/17 07:30 Hct 35.0 % (36.0-48.0) L 07/31/17 07:30 MCV 89.3 fl (80.0-105.0) 07/31/17 07:30 MCH 30.4 pg (25.0-35.0) 07/31/17 07:30 MCHC 34.0 g/dl (31.0-37.0) 07/31/17 07:30 RDW 12.9 % (11.5-14.5) 07/31/17 07:30 Plt Count 227 10^3/uL (120.0-450.0) 07/31/17 07:30 MPV 9.6 fl (7.0-11.0) 07/31/17 07:30 Gran % 67.8 % (50.0-68.0) 07/31/17 07:30 Lymph % (Auto) 25.4 % (22.0-35.0) 07/31/17 07:30 [place] % (Auto) 6.1 % (1.0-6.0) H 07/31/17 07:30 Eos % (Auto) 0.5 % (1.5-5.0) L 07/31/17 07:30 Baso % (Auto) 0.2 % (0.0-3.0) 07/31/17 07:30 Gran # 4.31 (1.4-6.5) 07/31/17 07:30 Lymph # (Auto) 1.6 (1.2-3.4) 07/31/17 07:30 [place] # (Auto) 0.4 (0.1-0.6) 07/31/17 07:30 Eos # (Auto) 0.0 (0.0-0.7) 07/31/17 07:30 Baso # (Auto) 0.01 K/mm3 (0.0-2.0) 07/31/17 07:30 Sodium 147 mmol/L (132-148) 07/31/17 07:30 Potassium 4.0 mmol/L (3.6-5.0) 07/31/17 07:30 Chloride 112 mmol/L (98-107) H 07/31/17 07:30 Carbon Dioxide 22 mmol/L (21-33) 07/31/17 07:30 Anion Gap 17 (10-20) 07/31/17 07:30 BUN 16 mg/dL (7-21) 07/31/17 07:30 Creatinine 0.7 mg/dl (0.7-1.2) 07/31/17 07:30 Est GFR ( Amer) > 60 07/31/17 07:30 Est GFR (Non-Af Amer) > 60 07/31/17 07:30 Random Glucose 106 mg/dL (70-110) 07/31/17 07:30 Calcium 9.1 mg/dL (8.4-10.5) 07/31/17 07:30 Total Bilirubin 0.2 mg/dL (0.2-1.3) 07/31/17 07:30 AST 28 U/L (14-36) 07/31/17 07:30 ALT 27 U/L (7-56) 07/31/17 07:30 Alkaline Phosphatase 70 U/L (38-126) 07/31/17 07:30 Total Creatine Kinase 95 U/L (35-230) 07/30/17 20:20 Total Protein 7.7 g/dL (5.8-8.3) 07/31/17 07:30 Albumin 4.4 g/dL (3.0-4.8) 07/31/17 07:30 Globulin 3.3 gm/dL 07/31/17 07:30 Albumin/Globulin Ratio 1.3 (1.1-1.8) 07/31/17 07:30 Prolactin 46.8 ng/mL (3.0-18.9) H 08/01/17 09:10 Urine Color Yellow (YELLOW) 07/30/17 21: Urine Appearance Clear (CLEAR) 07/30/17 21: Urine pH 6.0 (4.7-8.0) 07/30/17 21:22 Ur Specific [place] >= 1.030 (1.005-1.035) 07/30/17 21:22 Urine Protein 30 mg/dL (<30 mg/dL) H 07/30/17 21:22 Urine Glucose (UA) Negative mg/dL (NEGATIVE) 07/30/17 21: Urine Ketones Trace mg/dL (NEGATIVE) H 07/30/17 21: Urine Blood Negative (NEGATIVE) 07/30/17 21: Urine Nitrate Negative (NEGATIVE) 07/30/17 21: Urine Bilirubin Negative (NEGATIVE) 07/30/17 21:22 Urine Urobilinogen 0.2 E.U./dL (<1 E.U./dL) 07/30/17 21:22 Ur Leukocyte Esterase Negative [place]/uL (NEGATIVE) 07/30/17 21:22 Urine RBC Negative /hpf (0-2) 07/30/17 21:22 Urine WBC 0 - 2 /hpf (0-6) 07/30/17 21:22 Ur Epithelial Cells 0 - 2 /hpf (0-5) 07/30/17 21:22 Calcium Oxalate Crystal Few /hpf 07/30/17 21:22 Urine Bacteria Few (NEG) 07/30/17 21:22 Urine Opiates Screen Negative (NEGATIVE) 07/30/17 20:40 Urine Methadone Screen Negative (NEGATIVE) 07/30/17 20:40 Ur Barbiturates Screen Negative (NEGATIVE) 07/30/17 20:40 Ur Phencyclidine Scrn Negative (NEGATIVE) 07/30/17 20:40 Ur Amphetamines Screen Negative (NEGATIVE) 07/30/17 20:40 U Benzodiazepines Scrn Negative (NEGATIVE) 07/30/17 20:40 U Oth Cocaine Metabols Negative (NEGATIVE) 07/30/17 20:40 U Cannabinoids Screen Negative (NEGATIVE) 07/30/17 20:40 Alcohol, Quantitative < 10 mg/dL (0-10) 07/30/17 20:20 - Hospital Course Hospital Course: PGY-[address] Sanfrod 26 year old female with past medical history that includes seizures who presents with witnessed seizure earlier this evening. Her insurance changes and used up medicine. She was previously being seen by a neurologist, Dr. Bacon for which she has not seen in a couple months due to insurance issues. Patient has her medication prescriptions refilled at [facility]. Patient has had previous work up for her seizure activity. Patient reports adequate sleep, appropriate diet bu heightened stress. She was admitted for breakthrough seizure at telemetry. Head CT and MRI was negative for acute findings. Her medication was adjusted. 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 She lower herself down and fell, landed on her side. She was advised to take seizure medicine 7a/7p. This morning she self-reported seizure at 5am. When RN came, she was AAOx3. Tele showed sinus bradycardia and unchanged. Physical therapy states that she is not a candidate for skilled PT services. Dr Lowery has cleared the patient to follow up with Dr Bacon. I have made an appoint for her in October. I left message to Dr Bacon to call patient for possible earlier appointment and explained the circumstances for this hospitalization. Pt can call in his office to refill meds. This morning she complain of mild neck pain, controlled by motrin. Neck ROM intact, no focal neural deficit. Ask pt to continue to observe and NSAID as needed Discharge Exam - Head Exam Head Exam: ATRAUMATIC, NORMAL INSPECTION, NORMOCEPHALIC - Eye Exam Eye Exam: EOMI, Normal appearance, PERRL. absent: Scleral icterus Pupil Exam: NORMAL ACCOMODATION - ENT Exam ENT Exam: Mucous Membranes Moist - Neck Exam Neck exam: Full Rom, Lymphadenopathy, Normal Inspection, Tenderness (mild, at C7 ), Thyromegaly - Respiratory Exam Respiratory Exam: Clear to PA & Lateral, NORMAL BREATHING PATTERN, UNREMARKABLE - Cardiovascular Exam Cardiovascular Exam: REGULAR RHYTHM, +S1, +S2 - GI/Abdominal Exam GI & Abdominal Exam: Normal Bowel Sounds, Soft. absent: Distended, Guarding, Rigid - Back Exam Back exam: vertebral tenderness. absent: CVA tenderness (L), CVA tenderness (R) , paraspinal tenderness Additional comments: mild C7, no radiaton pain, numbess, tingling, ROM neck intact - Neurological Exam Neurological exam: Alert, CN II-XII Intact, Oriented x3 Additional comments: speech normal motor 5/5 sensory intact neck ROM full, no radiation pain, numb, tingin rapid alternating movemen intact [id number] intact - Psychiatric Exam Psychiatric exam: Normal Affect, Normal Mood - Skin Skin Exam: Dry, Warm Discharge Plan - Discharge Medications Prescriptions: RX: clonazePAM [Klonopin] 1 mg PO HS #5 tab RX: OXcarbazepine [Trileptal] 600 mg PO 0700,1900 #30 tab RX: Topiramate [Topamax] 100 mg PO 0700,1900 #30 tab - Follow Up Plan Condition: STABLE Disposition: HOME/ ROUTINE Patient education suggested?: Yes Instructions: Seizures, Adult (DC), Clonazepam, Oxcarbazepine, Topiramate Additional Instructions: 1. Patient should go to her neurologist at the [place] office Dr. Randy Bacon [facility] [address] [phone] The earliest appointment is made for her on October 26, 2017 1pm. Meanwhile, she can call in the office to refill her medicine. Dr. Bacon will call her to see if earlier appointment if possible. 2. Take trileptal and topamax at 7am and 7pm everyday. No not skip or delay 3. Follow up with primary care doctor at [facility] within 1-2 weeks. A [facility] clinic card is given to patient as alternative primary care choice Referrals: [facility], [Non-Staff] - <Dana Sanford - Last Filed: 08/02/17 13:56> Provider - Provider Date of Admission: 07/31/17 14:06 Attending physician: Dana Sanford MD Hospital Course - Lab Results Lab Results: Most Recent Lab Values WBC 6.4 10^3/ul (4.5-11.0) D 07/31/17 07:30 RBC 3.92 10^6/uL (3.5-6.1) 07/31/17 07:30 Hgb 11.9 g/dL (12.0-16.0) L 07/31/17 07:30 Hct 35.0 % (36.0-48.0) L 07/31/17 07:30 MCV 89.3 fl (80.0-105.0) 07/31/17 07:30 MCH 30.4 pg (25.0-35.0) 07/31/17 07:30 MCHC 34.0 g/dl (31.0-37.0) 07/31/17 07:30 RDW 12.9 % (11.5-14.5) 07/31/17 07:30 Plt Count 227 10^3/uL (120.0-450.0) 07/31/17 07:30 MPV 9.6 fl (7.0-11.0) 07/31/17 07:30 Gran % 67.8 % (50.0-68.0) 07/31/17 07:30 Lymph % (Auto) 25.4 % (22.0-35.0) 07/31/17 07:30 [place] % (Auto) 6.1 % (1.0-6.0) H 07/31/17 07:30 Eos % (Auto) 0.5 % (1.5-5.0) L 07/31/17 07:30 Baso % (Auto) 0.2 % (0.0-3.0) 07/31/17 07:30 Gran # 4.31 (1.4-6.5) 07/31/17 07:30 Lymph # (Auto) 1.6 (1.2-3.4) 07/31/17 07:30 [place] # (Auto) 0.4 (0.1-0.6) 07/31/17 07:30 Eos # (Auto) 0.0 (0.0-0.7) 07/31/17 07:30 Baso # (Auto) 0.01 K/mm3 (0.0-2.0) 07/31/17 07:30 Sodium 147 mmol/L (132-148) 07/31/17 07:30 Potassium 4.0 mmol/L (3.6-5.0) 07/31/17 07:30 Chloride 112 mmol/L (98-107) H 07/31/17 07:30 Carbon Dioxide 22 mmol/L (21-33) 07/31/17 07:30 Anion Gap 17 (10-20) 07/31/17 07:30 BUN 16 mg/dL (7-21) 07/31/17 07:30 Creatinine 0.7 mg/dl (0.7-1.2) 07/31/17 07:30 Est GFR ( Amer) > 60 07/31/17 07:30 Est GFR (Non-Af Amer) > 60 07/31/17 07:30 Random Glucose 106 mg/dL (70-110) 07/31/17 07:30 Calcium 9.1 mg/dL (8.4-10.5) 07/31/17 07:30 Total Bilirubin 0.2 mg/dL (0.2-1.3) 07/31/17 07:30 AST 28 U/L (14-36) 07/31/17 07:30 ALT 27 U/L (7-56) 07/31/17 07:30 Alkaline Phosphatase 70 U/L (38-126) 07/31/17 07:30 Total Creatine Kinase 95 U/L (35-230) 07/30/17 20:20 Total Protein 7.7 g/dL (5.8-8.3) 07/31/17 07:30 Albumin 4.4 g/dL (3.0-4.8) 07/31/17 07:30 Globulin 3.3 gm/dL 07/31/17 07:30 Albumin/Globulin Ratio 1.3 (1.1-1.8) 07/31/17 07:30 Prolactin 46.8 ng/mL (3.0-18.9) H 08/01/17 09:10 Urine Color Yellow (YELLOW) 07/30/17 21:22 Urine Appearance Clear (CLEAR) 07/30/17 21: Urine pH 6.0 (4.7-8.0) 07/30/17 21:22 Ur Specific [place] >= 1.030 (1.005-1.035) 07/30/17 21:22 Urine Protein 30 mg/dL (<30 mg/dL) H 07/30/17 21:22 Urine Glucose (UA) Negative mg/dL (NEGATIVE) 07/30/17 21:22 Urine Ketones Trace mg/dL (NEGATIVE) H 07/30/17 21:22 Urine Blood Negative (NEGATIVE) 07/30/17 21:22 Urine Nitrate Negative (NEGATIVE) 07/30/17 21: Urine Bilirubin Negative (NEGATIVE) 07/30/17 21:22 Urine Urobilinogen 0.2 E.U./dL (<1 E.U./dL) 07/30/17 21:22 Ur Leukocyte Esterase Negative [place]/uL (NEGATIVE) 07/30/17 21:22 Urine RBC Negative /hpf (0-2) 07/30/17 21:22 Urine WBC 0 - 2 /hpf (0-6) 07/30/17 21:22 Ur Epithelial Cells 0 - 2 /hpf (0-5) 07/30/17 21:22 Calcium Oxalate Crystal Few /hpf 07/30/17 21:22 Urine Bacteria Few (NEG) 07/30/17 21:22 Urine Opiates Screen Negative (NEGATIVE) 07/30/17 20:40 Urine Methadone Screen Negative (NEGATIVE) 07/30/17 20:40 Ur Barbiturates Screen Negative (NEGATIVE) 07/30/17 20:40 Ur Phencyclidine Scrn Negative (NEGATIVE) 07/30/17 20:40 Ur Amphetamines Screen Negative (NEGATIVE) 07/30/17 20:40 U Benzodiazepines Scrn Negative (NEGATIVE) 07/30/17 20:40 U Oth Cocaine Metabols Negative (NEGATIVE) 07/30/17 20:40 U Cannabinoids Screen Negative (NEGATIVE) 07/30/17 20:40 Alcohol, Quantitative < 10 mg/dL (0-10) 07/30/17 20:20 Attending/Attestation - Attestation I have personally seen and examined this patient.: Yes I have fully participated in the care of the patient.: Yes I have reviewed all pertinent clinical information, including history, physical exam and plan: Yes Notes (Text): 08/02/17 13:53 26 year old female wiht past medical history of seizures who presented with witnessed seizure. CT head was negative for acute findings. She was admitted for observation and seen by neurology. She is on trileptal and topamax. Medications were adjusted as above. Patient is discharged home to follow up with pmd or [facility]. Follow up with neurology. Patient states she does not drive. Dana Sanford MD Hospitalist.
[2017-08-02 12:34] VITALS: BP 95/54; TEMP 98.3
[2017-08-02 14:15] VITALS: PULSE 96
--- NOTE | 2017-08-03 08:12 | CARD ---
APPROVED REPORT EKG Measurement Heart [id number] <Conclusion> Normal sinus rhythm Normal ECG
== END 2017-08-02 15:49 | disposition home or self-care (01) | DRG 101 ==
LOC: ED 20:00 → ERH 22:50 → 2RSO 07-31 00:48 → OBSVTOIN 07-31 14:06
PROVIDERS: ADMIT Internal Medicine; ATTEND Internal Medicine
DX: G40.909 Epilepsy, unspecified, not intractable, without status epilepticus (principal); M54.2 Cervicalgia

== ENCOUNTER 2017-08-08 10:01 | Emergency (ER) | payer MEDICAID, OTHER ==
[2017-08-08 10:08] VITALS: BMI 32.2
[2017-08-08 10:14] VITALS: O2SAT 99
[2017-08-08 11:16] VITALS: BP 107/71; PULSE 74; RESP 18
--- NOTE | 2017-08-08 11:29 | ED PDOC ---
Arrival/HPI - General Chief Complaint: Headache Time Seen by Provider: 08/08/17 11:06 Historian: Patient - History of Present Illness Narrative History of Present Illness (Text): 08/08/17 11:30 A 26 year old female, with no significant past medical history, presents to the emergency department complaining of bump to back side. Patient reports pain did not go away yesterday. Patient denies any dental pain, difficulty swallowing, or any other symptoms. No PMD Past Medical History - Provider Review Nursing Documentation Reviewed: Yes - Infectious Disease Hx of Infectious Diseases: None - Tetanus Immunization Tetanus Immunization: Unknown - Past Medical History Past Medical History: No Previous - Cardiac Hx Cardiac Disorders: No - Pulmonary Hx Respiratory Disorders: No - Neurological Hx Seizures: Yes Other/Comment: childhood epilepsy - HEENT Hx HEENT Disorder: No - Renal Hx Renal Disorder: No - Endocrine/Metabolic Hx Endocrine Disorders: No - Hematological/Oncological Hx Blood Disorders: No - Integumentary Hx Dermatological Disorder: No - Musculoskeletal/Rheumatological Hx Musculoskeletal Disorders: No - Gastrointestinal Hx Gastrointestinal Disorders: No - Genitourinary/Gynecological Hx Genitourinary Disorders: No - Psychiatric Hx Psychophysiologic Disorder: No Hx Substance Use: No - Past Surgical History Past Surgical History: No Previous - Anesthesia Hx Anesthesia: No Hx Anesthesia Reactions: No Hx Malignant Hyperthermia: No - Suicidal Assessment Feels Threatened In Home Enviroment: No Family/Social History - Physician Review Nursing Documentation Reviewed: Yes Family/Social History: No Known Family HX Smoking Status: Never Smoked Hx Alcohol Use: No Hx Substance Use: No Hx Substance Use Treatment: No Allergies/Home Meds Allergies/Adverse Reactions: Allergies No Known Allergies Allergy (Verified 03/22/17 19:46) Review of Systems - Physician Review All systems were reviewed & negative as marked: Yes - Review of Systems ENT: absent: Other (no difficulty swallowing) Musculoskeletal: Other (bump to back of neck at base of skull; no dental pain) Physical Exam Vital Signs Temp Pulse Resp BP Pulse Ox 08/08/17 11:16 74 18 107/71 99 08/08/17 10:02 98 F 81 16 105/72 99 Temperature: Afebrile Blood Pressure: Normal Pulse: Regular Respiratory Rate: Normal Appearance: Positive for: Well-Appearing Pain Distress: None Mental Status: Positive for: Alert and Oriented X 3 - Systems Exam Neck: Present: Lymphadenopathy Medical Decision Making ED Course and Treatment: 08/08/17 11:34 Impression: 26 year old female with bump to back of neck at base of skull. Physical exam shows lymphadenopathy to back of neck. Differential Diagnosis included but are not limited to: Cervical Adenitis Plan: -- Motrin -- Antibiotics -- Reassess and disposition Progress Notes: - Scribe Statement The provider has reviewed the documentation as recorded by the Jac Ag Provider Scribe Attestation: All medical record entries made by the Josephibalbaro were at my direction and personally dictated by me. I have reviewed the chart and agree that the record accurately reflects my personal performance of the history, physical exam, medical decision making, and the department course for this patient. I have also personally directed, reviewed, and agree with the discharge instructions and disposition. Disposition/Present on Arrival - Present on Arrival Any Indicators Present on Arrival: No History of DVT/PE: No History of Uncontrolled Diabetes: No Urinary Catheter: No History of Decub. Ulcer: No History Surgical Site Infection Following: None - Disposition Have Diagnosis and Disposition been Completed?: Yes Diagnosis: Acute cervical adenitis Disposition: HOME/ ROUTINE Disposition Time: 11:45 Patient Plan: Discharge Condition: GOOD Additional Instructions: Haley- Warm moist compresses to the bump as much as possible or stand under the shower and let the water run over it a few times a day. Cleocin is the antibiotic and that is four times a day. Motrin is for the inflammation and the pain and it is three times a day with food. Return to us if any problems. [facility]- Dr. Koffi Joel Prescriptions: Clindamycin [Cleocin] 300 mg PO QID #40 cap Ibuprofen [Motrin Tab] 800 mg PO TID #30 tab Forms: [employer] (Moroccan)
[2017-08-08 12:44] VITALS: TEMP 98
== END 2017-08-08 12:45 | disposition home or self-care (01) ==
LOC: ED 10:01
DX: L04.0 Acute lymphadenitis of face, head and neck (principal)

== ENCOUNTER 2018-02-27 19:12 | Emergency (ER) | payer MEDICAID ==
[2018-02-27 19:12] VITALS: BMI 32.2
[2018-02-27] MEDS ORDERED: DiphenhydrAMINE 50 mg/ml Inj IM STA (20:49)
[2018-02-27 20:51] VITALS: RESP 18; TEMP 97.5; O2SAT 99
--- NOTE | 2018-02-27 21:30 | ED PDOC ---
Arrival/HPI - General Chief Complaint: Allergic Reaction Time Seen by Provider: 02/27/18 20:44 Historian: Patient - History of Present Illness Narrative History of Present Illness (Text): 02/27/18 20:45 Haley Hodges is a 27 year old female, whose past medical history includes seizures, who presents to the Emergency department complaining of an itchy rash to arms and chest tonight. Patient states she is unsure of what may have triggered the reaction. Patient denies any shortness of breath, fever, chills, facial/throat swelling, or any other complaints. Symptom Onset: Gradual Symptom Course: Unchanged Activities at Onset: Light Context: Home Past Medical History - Provider Review Nursing Documentation Reviewed: Yes - Infectious Disease Hx of Infectious Diseases: None - Tetanus Immunization Tetanus Immunization: Unknown - Past Medical History Past Medical History: No Previous - Cardiac Hx Cardiac Disorders: No - Pulmonary Hx Respiratory Disorders: No - Neurological Hx Seizures: Yes Other/Comment: childhood epilepsy - HEENT Hx HEENT Disorder: No - Renal Hx Renal Disorder: No - Endocrine/Metabolic Hx Endocrine Disorders: No - Hematological/Oncological Hx Blood Disorders: No - Integumentary Hx Dermatological Disorder: No - Musculoskeletal/Rheumatological Hx Musculoskeletal Disorders: No - Gastrointestinal Hx Gastrointestinal Disorders: No - Genitourinary/Gynecological Hx Genitourinary Disorders: No - Psychiatric Hx Psychophysiologic Disorder: No Hx Substance Use: No - Past Surgical History Past Surgical History: No Previous - Anesthesia Hx Anesthesia: No Hx Anesthesia Reactions: No Hx Malignant Hyperthermia: No - Suicidal Assessment Feels Threatened In Home Enviroment: No Family/Social History - Physician Review Nursing Documentation Reviewed: Yes Family/Social History: Unknown Family HX Smoking Status: Never Smoked Hx Alcohol Use: No Hx Substance Use: No Hx Substance Use Treatment: No Allergies/Home Meds Allergies/Adverse Reactions: Allergies No Known Allergies Allergy (Verified 03/22/17 19:46) Review of Systems - Physician Review All systems were reviewed & negative as marked: Yes - Review of Systems Constitutional: Normal. absent: Fevers Eyes: Normal ENT: Normal Respiratory: Normal. absent: SOB, Cough Cardiovascular: Normal. absent: Chest Pain Gastrointestinal: Normal. absent: Abdominal Pain, Diarrhea, Nausea, Vomiting Genitourinary Female: Normal. absent: Dysuria, Frequency, Hematuria, Urine Output Changes Musculoskeletal: Normal Skin: Rash, Pruritis Neurological: Normal. absent: Headache, Dizziness Endocrine: Normal Hemo/Lymphatic: Normal Psychiatric: Normal Physical Exam Vital Signs Reviewed: Yes Vital Signs Temp Pulse Resp BP Pulse Ox 02/27/18 20:49 97.5 F L 73 18 109/55 L 99 Temperature: Afebrile Blood Pressure: Normal Pulse: Regular Respiratory Rate: Normal Appearance: Positive for: Well-Appearing, Non-Toxic, Comfortable Pain Distress: None Mental Status: Positive for: Alert and Oriented X 3 - Systems Exam Head: Present: Atraumatic, Normocephalic Pupils: Present: PERRL Extroacular Muscles: Present: EOMI Conjunctiva: Present: Normal Mouth: Present: Moist Mucous Membranes Pharnyx: Present: Normal. No: ERYTHEMA, EXUDATE, TONSILS ENLARGED, Peritonsilar Swelling, Uvular Deviation, Muffled/Hoarse Voice, Strider, Soft Palate/Uvular Edema Nose (External): Present: Atraumatic Nose (Internal): Present: Normal Inspection Neck: Present: Normal Range of Motion. No: Meningeal Signs, MIDLINE TENDERNESS, Paraspinal Tenderness Respiratory/Chest: Present: Clear to Auscultation, Good Air Exchange. No: Respiratory Distress, Accessory Muscle Use Cardiovascular: Present: Regular Rate and Rhythm, Normal S1, S2. No: Murmurs Abdomen: No: Tenderness, Distention, Peritoneal Signs Back: Present: Normal Inspection Upper Extremity: Present: Normal Inspection. No: Cyanosis, Edema Lower Extremity: Present: Normal Inspection. No: Edema Neurological: Present: GCS=15, CN II-XII Intact, Speech Normal Skin: Present: Warm, Dry, Rashes (Few, scattered areas of papular urticaria to arms and chest), Normal Color Psychiatric: Present: Alert, Oriented x 3, Normal Insight, Normal Concentration Medical Decision Making ED Course and Treatment: 02/27/18 20:45 Impression: 27 year old female complaining of itchy rash to arms and chest tonight. Plan: -- Benadryl -- Prednisone -- Reassess and disposition Prior Visits: Notes and results from previous visits were reviewed. Progress Notes: - Medication Orders Current Medication Orders: Discontinued Medications Diphenhydramine HCl (Benadryl) 50 mg IM ONCE STA Stop: 02/27/18 20:50 Prednisone (Prednisone Tab) 60 mg PO ONCE STA Stop: 02/27/18 20:50 - Scribe Statement The provider has reviewed the documentation as recorded by the Jac Ellis Provider Scribe Attestation: All medical record entries made by the Scribe were at my direction and personally dictated by me. I have reviewed the chart and agree that the record accurately reflects my personal performance of the history, physical exam, medical decision making, and the department course for this patient. I have also personally directed, reviewed, and agree with the discharge instructions and disposition. Disposition/Present on Arrival - Present on Arrival Any Indicators Present on Arrival: No History of DVT/PE: No History of Uncontrolled Diabetes: No Urinary Catheter: No History of Decub. Ulcer: No History Surgical Site Infection Following: None - Disposition Have Diagnosis and Disposition been Completed?: Yes Diagnosis: Allergic reaction Disposition: HOME/ ROUTINE Disposition Time: 22:30 Patient Plan: Discharge Condition: GOOD Additional Instructions: Take meds as prescribed/follow up with your doctor this week Prescriptions: DiphenhydrAMINE [Benadryl] 50 mg PO Q6 PRN #24 cap PRN Reason: Itching / Pruritus predniSONE [Prednisone] 40 mg PO DAILY #10 tab Referrals: Kate Villalba DO [Primary Care Provider] - Follow up with primary Forms: [employer] (Maori)
[2018-02-28 00:50] VITALS: BP 115/62; PULSE 70
== END 2018-02-27 22:40 | disposition home or self-care (01) ==
LOC: ED 19:12
DX: T78.40XA Allergy, unspecified, initial encounter (principal)
CPT/HCPCS: 96372; 99283; J1200

== ENCOUNTER 2018-04-01 13:44 | Emergency (ER) | payer MEDICAID ==
[2018-04-01 13:47] VITALS: BMI 34.0
[2018-04-01 13:53] VITALS: RESP 18
--- NOTE | 2018-04-01 14:12 | ED PDOC ---
Arrival/HPI - General Chief Complaint: Seizure Time Seen by Provider: 04/01/18 13:52 Historian: Patient - History of Present Illness Narrative History of Present Illness (Text): 04/01/18 14:12 A 27 y/o F w/ pmhx of seizures presents to the emergency department s/p 2 seizures from earlier today. Patient reports her first seizure occurred on the bus and her second seizure occurred during her doctor's appointment, patient notes she was sitting down for both seizures. Patient reports she has seizure episodes daily and is in the process of getting a brain surgery. Patient reports she is taking topamax 900 mg, trileptal 200 mg, and klonopin 1 mg. Patient reports she is currently experiencing a cold and has previously had an MRI of her brain. Patient denies any sick contacts, shortness of breath, chest pain, headache, dizziness, or any other complaints. PMD: Dr. Villalba Neurologist: Dr. Bacon Time/Duration: 4-6 hours (earlier today) Symptom Onset: Sudden Symptom Course: Intermittent Activities at Onset: Light Context: Other (doctor's office) Past Medical History - Provider Review Nursing Documentation Reviewed: Yes - Infectious Disease Hx of Infectious Diseases: None - Tetanus Immunization Tetanus Immunization: Unknown - Past Medical History Past Medical History: No Previous - Cardiac Hx Cardiac Disorders: No - Pulmonary Hx Respiratory Disorders: No - Neurological Hx Seizures: Yes Other/Comment: childhood epilepsy - HEENT Hx HEENT Disorder: No - Renal Hx Renal Disorder: No - Endocrine/Metabolic Hx Endocrine Disorders: No - Hematological/Oncological Hx Blood Disorders: No - Integumentary Hx Dermatological Disorder: No - Musculoskeletal/Rheumatological Hx Musculoskeletal Disorders: No - Gastrointestinal Hx Gastrointestinal Disorders: No - Genitourinary/Gynecological Hx Genitourinary Disorders: No - Psychiatric Hx Psychophysiologic Disorder: No Hx Substance Use: No - Past Surgical History Past Surgical History: No Previous - Anesthesia Hx Anesthesia: No Hx Anesthesia Reactions: No Hx Malignant Hyperthermia: No - Suicidal Assessment Feels Threatened In Home Enviroment: No Family/Social History - Physician Review Nursing Documentation Reviewed: Yes Family/Social History: No Known Family HX Smoking Status: Never Smoked Hx Alcohol Use: No Hx Substance Use: No Hx Substance Use Treatment: No Allergies/Home Meds Allergies/Adverse Reactions: Allergies No Known Allergies Allergy (Verified 03/22/17 19:46) Home Medications: Home Meds Medication Instructions Recorded Confirmed Desonide 0.05 gm TP DAILY 04/01/18 04/01/18 Fluocinonide 0.05% Cream [Lidex 15 gm TP DAILY 04/01/18 04/01/18 0.05% Cream] Loratadine [Claritin] 10 mg PO DAILY 04/01/18 04/01/18 Miconazole 2% Vaginal [Monistat 7 15 g TP PRN PRN 04/01/18 04/01/18 Vaginal Cream] Review of Systems - Physician Review All systems were reviewed & negative as marked: Yes - Review of Systems Constitutional: Other (has a cold) Respiratory: absent: SOB Cardiovascular: absent: Chest Pain Neurological: Seizure (2 episodes of seiazures earlier today). absent: Headache, Dizziness Physical Exam Vital Signs Reviewed: Yes Vital Signs Pulse Resp BP Pulse Ox 04/01/18 13:52 75 18 106/70 99 Blood Pressure: Normal Pulse: Regular Respiratory Rate: Normal Appearance: Positive for: Well-Appearing, Non-Toxic Pain Distress: None Mental Status: Positive for: Alert and Oriented X 3 - Systems Exam Head: Present: Atraumatic, Normocephalic Pupils: Present: PERRL Extroacular Muscles: Present: EOMI Conjunctiva: Present: Normal Respiratory/Chest: Present: Clear to Auscultation, Good Air Exchange. No: Respiratory Distress, Accessory Muscle Use Cardiovascular: Present: Regular Rate and Rhythm, Normal S1, S2. No: Murmurs Abdomen: No: Tenderness, Distention, Peritoneal Signs Back: Present: Normal Inspection Upper Extremity: Present: Normal Inspection. No: Cyanosis, Edema Lower Extremity: Present: Normal Inspection. No: Edema Neurological: Present: GCS=15, CN II-XII Intact, Speech Normal Skin: Present: Warm, Dry, Normal Color. No: Rashes Psychiatric: Present: Alert, Oriented x 3, Normal Insight, Normal Concentration Medical Decision Making ED Course and Treatment: 04/01/18 14:12 Impression: 27 y/o F presents to the emergency department s/p 2 seizures. Differential Diagnosis included but are not limited to: - seizure - encephalitis - brain mass Plan: -- Head CT without contrast -- Labs -- CBC -- Clonazepam -- Topiramate -- Urinalysis -- Reassess and disposition Prior Visits: Notes and results from previous visits were reviewed. Progress Notes: 04/01/18 15:[address] Bacon(neurology) BRIANDA July who spoke to Dr. Bacon and states patient should be given 1mg of Ativan right now and to increase her nightly dose of Trileptal to 1200mg starting tonight. Patient updated on findings. - Lab Interpretations Lab Results: 04/01/18 14:42 04/01/18 14:42 Lab Results 04/01/18 15:30: Urine Color Yellow, Urine Appearance Clear, Urine pH 6.0, Ur Specific [place] 1.025, Urine Protein Negative, Urine Glucose (UA) Negative, Urine Ketones Negative, Urine Blood Negative, Urine Nitrate Negative, Urine Bilirubin Negative, Urine Urobilinogen 0.2, Ur Leukocyte Esterase Small H, Urine RBC None, Urine WBC 2 - 5, Ur Epithelial Cells 4 - 5, Urine Bacteria Many 04/01/18 14:42: Sodium 138, Potassium 4.1, Chloride 112 H, Carbon Dioxide 22, Anion Gap 9 L, BUN 9, Creatinine 0.8, Est GFR ( Amer) > 60, Est GFR (Non- Af Amer) > 60, Random Glucose 94, Calcium 8.8, Magnesium 2.0, Total Bilirubin 0.3, AST 23, ALT 27, Alkaline Phosphatase 92, Total Protein 7.5, Albumin 4.0, Globulin 3.5, Albumin/Globulin Ratio 1.2 04/01/18 14:42: WBC 5.1, RBC 3.85, Hgb 11.7 L, Hct 35.0 L, MCV 90.9, MCH 30.4, MCHC 33.4, RDW 12.7, Plt Count 235, MPV 9.4, Gran % 68.4 H, Lymph % (Auto) 19.6 L, [place] % (Auto) 5.3, Eos % (Auto) 6.5 H, Baso % (Auto) 0.2, Gran # 3.45, Lymph # (Auto) 1.0 L, [place] # (Auto) 0.3, Eos # (Auto) 0.3, Baso # (Auto) 0.01 I have reviewed the lab results: Yes - Scribe Statement The provider has reviewed the documentation as recorded by the Josephibalbaro Bethea All medical record entries made by the Scribe were at my direction and personally dictated by me. I have reviewed the chart and agree that the record accurately reflects my personal performance of the history, physical exam, medical decision making, and the department course for this patient. I have also personally directed, reviewed, and agree with the discharge instructions and disposition. Disposition/Present on Arrival - Present on Arrival Any Indicators Present on Arrival: No History of DVT/PE: No History of Uncontrolled Diabetes: No Urinary Catheter: No History of Decub. Ulcer: No History Surgical Site Infection Following: None - Disposition Have Diagnosis and Disposition been Completed?: Yes Diagnosis: Seizure Disposition: HOME/ ROUTINE Disposition Time: 15:47 Patient Plan: Admission Condition: STABLE Discharge Instructions (ExitCare): Seizures, Adult (DC) Print Language: [place]IZ[place] Additional Instructions: All medical record entries made by the Scribe were at my direction and personally dictated by me. I have reviewed the chart and agree that the record accurately reflects my personal performance of the history, physical exam, medical decision making, and the department course for this patient. I have also personally directed, reviewed, and agree with the discharge instructions and disposition. Please follow up with Dr. Bacon in 1-2 weeks Remember to increase your nightly dose of Trileptal to 1200mg and keep your morning dose of 900mg. Referrals: Kate Villalba DO [Primary Care Provider] - Follow up with primary Arleen GONZALES,Randy Longoria MD [Staff Provider] - Follow up with primary Forms: [employer] (Thai)
[2018-04-01 14:48] LABS: BASO # 0.01 K/mm3 (0.0-2.0); BASO % 0.2 % (0.0-3.0); EOS # 0.3 (0.0-0.7); EOS % 6.5 % (1.5-5.0); GRAN # 3.45 (1.4-6.5); GRAN % 68.4 % (50.0-68.0); HEMOGLOBIN 11.7 g/dL (12.0-16.0); LYMPH % 19.6 % (22.0-35.0); MEAN CELL VOLUME 90.9 fl (80.0-105.0); MEAN CORPUSCULAR HEMOGLOBIN 30.4 pg (25.0-35.0); MEAN CORPUSCULAR HGB CONC 33.4 g/dl (31.0-37.0); MEAN PLATELET VOLUME 9.4 fl (7.0-11.0); MONO # 0.3 (0.1-0.6); MONO % 5.3 % (1.0-6.0); RBC 3.85 10^6/uL (3.5-6.1); RED CELL DISTRIBUTION WIDTH 12.7 % (11.5-14.5); WHITE BLOOD COUNT 5.1 10^3/uL (4.5-11.0)
[2018-04-01 15:03] LABS: ALB/GLOB RATIO 1.2 (1.1-1.8); ALT/SGPT 27 U/L (7-56); AST/SGOT 23 U/L (14-36); BLOOD UREA NITROGEN 9 mg/dL (7-21); CALCIUM 8.8 mg/dL (8.4-10.5); GFR NON-AFRICAN AMERICAN > 60
[2018-04-01 15:38] LABS: URINE BILIRUBIN NEGATIVE (NEGATIVE); URINE BLOOD NEGATIVE (NEGATIVE); URINE GLUCOSE (UA) NEGATIVE (NEGATIVE); URINE LEUKOCYTE ESTERASE SMALL Leu/uL (NEGATIVE); URINE PROTEIN NEGATIVE mg/dL (<30 mg/dL); URINE UROBILINOGEN 0.2 E.U./dL (<1 E.U./dL)
[2018-04-01 15:40] LABS: URINE APPEARANCE CLEAR (CLEAR); URINE COLOR YELLOW (YELLOW)
[2018-04-01 15:45] LABS: URINE BACTERIA MANY /hpf
[2018-04-01 16:04] LABS: BARBITURATES, UR NEGATIVE (NEGATIVE); BENZODIAZEPINES, UR NEGATIVE (NEGATIVE); OPIATES, UR NEGATIVE (NEGATIVE); PHENCYCLIDINE, UR NEGATIVE (NEGATIVE)
[2018-04-01 16:19] VITALS: BP 110/68; PULSE 85; O2SAT 100
== END 2018-04-01 15:56 | disposition home or self-care (01) ==
LOC: ED 13:44
DX: R56.9 Unspecified convulsions (principal)
CPT/HCPCS: 80053; 80201; 80324; 80345; 80346; 80349; 80353; 80358; 80361; 81001; 81025; 83735; 83992; 85025; 87086; 96374; 99285; J2060